=== PATIENT | female | born 1970 | race Caucasian/White ===

== ENCOUNTER 2025-04-12 09:51 | Outpatient (AMB) | payer OTHER, SELFPAY ==
--- OUTSIDE RECORDS SUMMARY | 2012-07-20 01:00 | XMS_ITS | Encounter Summary ---
Author Organization [facility] Address [address] [place] [phone] Phone Care Team Providers Care Collections Analyst Name Role Phone Unavailable Primary Care Provider Unavailabl e Encounter Details Date Type Department Care Team (Late st Contact Info) Description 07/20/2012 Hospital Encounter [facility],Outside Imaging [address] [place] [address] Unknown, Unknown, Social History Tobacco Use Types Packs/Day Years Used Date Smoking Tobacco: Never Smokeless Tobacco: Never Alcohol Use Standard Drinks/Week Comments Yes 3 (1 standard drink = 0.6 oz pur e alcohol) Education Answer Date Recorded Are you interested in more education? Not on margy e 10/10/2022 Are you concerned about learning? Not on file 10/10/2022 No 10/10/2022 No 10/10/2022 Digital Access Answer Date Recorded No 11/10/2022 No 11/10/2022 Reliable internet access at home? Not on file 11/10/2022 Device with a working camera? Not on file Comments Unknown Sex and Gender Information Value Date Recorded Sex Assigned at Not on file Legal Sex Female 8:12 PM EST Gender Identity Not on file Sexual Orientation Not on file documented as of this encounter Plan of Treatment Upcoming Encounters Date Type Department Care Team (Late st Contact Info) Description 04/09/2026 3:20 PM EDT Office Visit [facility] Endocrinology [address] [phone] Tracy Stallworth MD [address] [address] [email or web address] documented as of this encounter Procedures Procedure Name Priority Date/Time Associated Diagnosis Comments US THYROID GLAND OUTSIDE (NO INTERPRETATION) Routine 07/20/2012 12:00 AM EST documented in this encounter Results * US Thyroid Gland Outside (No Interpretation) (07/20/2012 12:00 AM EST) Narrative SYSTEMGENERATED, DOCUMENTATION - 04/05/2025 9:37 AM EDT This study is for PACS storage only and not for interpretation. us Unknown Unknown MD GARCIA OUTSIDE IMAGING W/OUT INT ERPRETATION Final Result documented in this encounter Visit Diagnoses Not on filedocumented in this encounter Additional Source Comments The information contained in this document represents components of the legal health record. It is not the complete legal health record.[facility]
--- OUTSIDE RECORDS SUMMARY | 2013-07-08 01:00 | XMS_ITS | Encounter Summary ---
Author Organization [facility] Address [address] [place] [phone] Phone Care Team Providers Care Airplane Refueler Name Role Phone Roshni Cheek MD Primary Care Provider [phone] Encounter Details Date Type Department Care Team (Late st Contact Info) Description 07/08/2013 Hospital Encounter [facility],Outside Imaging [address] [place] [address] Unknown, Unknown, Social History Tobacco Use Types [...] Description 04/09/2026 3:20 PM EDT Office Visit [facility] Endocrinology [address] [phone] Tracy Stallworth MD [address] [address] documented as of this encounter Procedures Procedure Name Priority Date/Time Associated Diagnosis Comments US THYROID GLAND OUTSIDE (NO INTERPRETATION) Routine 07/08/2013 12:00 AM EST documented in this encounter Results * US Thyroid Gland Outside (No Interpretation) (07/08/2013 12:00 AM EST) Narrative SYSTEMGENERATED, DOCUMENTATION - 04/05/2025 9:37 AM EDT This study is for PACS storage only and not for interpretation. us Unknown Unknown MD [facility] OUTSIDE IMAGING W/OUT INT ERPRETATION Final Result documented in this encounter Visit Diagnoses Not on filedocumented in this encounter Care Teams Airplane Refueler Relationship Specialty Start Date End Date Roshni Cheek MD [address] [place] [phone] PCP - General 07/08/13 10/23/16 documented as of this encounter Additional Source Comments The information contained in this document represents components of the legal health record. It is not the complete legal health record.[facility]
--- NOTE | 2025-04-12 09:54 | MHC.PC.OV ---
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 Allergies No Known Allergies Allergy (Verified 04/12/25 10:08) Medication List - Last Reviewed 04/12/25 by Loy Collazo MA albuterol sulfate 90 mcg/actuation 2 puffs inhalation QID PRN budesonide 0.25 mg inhalation BID budesonide-formoterol 80-4.5 mcg/actuation (Symbicort) 2 puffs inhalation estradiol 1 patch transdermal 2XW levalbuterol HCl 0.63 mg inhalation Q8H PRN lisinopril 5 mg PO DAILY metronidazole 0.75% appl topical BID PRN montelukast 10 mg PO DAILY progesterone micronized 200 mg PO DAILY tretinoin 0.025% appl topical BEDTIME Tobacco use date assessed: 04/12/25 Dental Screening Dental Screen Date: 04/12/25 Did you have a dental visit in the last 12 months?: Yes Did you have a dental problem in the last 6 months where you did not have access to dental care?: No Was dental information given to patient?: Patient has dentist HPI HPI Comments History of Present Illness Details 54 y/o F with thyroid nodule, Asthma, vasomotor rhinitis, melanoma , hx of L foot fracture, HTN, perimenopause S/p bilat modified hip replacement 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 PCP [facility] rec'd Low back pain: - The patient has a longstanding history of low back pain since a lifting incident at age 17. - She has a history of disc issues at L4-L5 and L5-S1, with flare-ups causing radicular pain down the leg with forward bending. - A flare-up in January was successfully treated with a week of steroids and muscle relaxants. - She developed a new type of pain after a Lisfranc fracture of her left foot in September, which required being non-weightbearing for 6 weeks in an iWalk device, followed by 4 weeks in a boot, leading to an uneven gait. - The current pain is located laterally, radiates down the IT band, and is exacerbated by extension, which is different from her usual disc-related pain. - She suspects gluteal tendinopathy, and a recent ultrasound at the [facility] [place] confirmed inflammation of the gluteal tendon. - A diagnostic injection of dextrose, lidocaine, and steroid into the SI joint area last week did not provide any relief. - An MRI of the spine and SI-joint area was ordered by a provider at [facility] but was denied by her insurance. - Self-management includes turmeric, fish oil, lidocaine patches, ibuprofen, occasional Tylenol, stretching, and a TENS unit. Asthma: - The patient manages her asthma with Symbicort 80/4.5, which she increases to two puffs twice daily in the fall and winter, and weans during the summer. - She also takes Singulair. - For exacerbations, especially when ill, she uses budesonide nebulizer treatments and her albuterol inhaler to avoid oral steroids. - She has had significant asthma exacerbations over the last two brownlee, one triggered by an RSV infection and the other by influenza. - Her asthma is generally well-controlled outside of acute illnesses. Menopausal and perimenopausal disorder: - The patient is managed for menopausal symptoms with an estradiol patch and Prometrium, which have helped with hot flashes, mood, and sleep. - Her periods have mostly ceased, with only occasional faint spotting in the past six months. - She reports gaining 15-20 pounds in the last 1.5 years, which she attributes to perimenopause and is frustrated by. - She has made dietary changes, such as cutting back on alcohol, without seeing results. Past Medical History: - Hypertension managed with lisinopril. - History of acetabular dysplasia, which led to bilateral hip resurfacing 15 and 16 years ago. - History of melanoma in 1996, status post wide excision, with biannual dermatology follow-ups. - History of benign thyroid nodules, with yearly endocrinology follow-up; a biopsy several years ago was benign. 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 An echocardiogram was previously recommended but not completed. Past Medical History - Hypertension, treated with lisinopril. - Asthma, treated with Symbicort, Singulair, and albuterol as needed. - Menopause, treated with progesterone and an estradiol patch. - Chronic low back pain since age 17 with disc issues at L4-L5, L5-S1. - History of acetabular dysplasia with bilateral hip resurfacing 15 and 16 years ago. - Left Lisfranc fracture in September. - History of melanoma in 1996, status post wide excision, in remission. - History of benign thyroid nodules, followed by endocrinology. - Familial history of bradycardia. - History of an elbow tendinitis treated with a PRP injection. Review of Systems - CONSTITUTIONAL: Reports weight gain of 15-20 pounds over the last 1.5 years. Denies feeling faint or dizzy. - RESPIRATORY: Currently denies any respiratory issues. Reports her lungs are currently good. - MUSCULOSKELETAL: Reports low back and hip pain that radiates laterally down the IT band, which is worse with extension. - GENITOURINARY: Reports intermittent dysuria for a day that resolves and recurs every few months. Denies current symptoms. Reports perimenopausal changes with faint spotting a few times over the last five to six months instead of regular periods. - ENDOCRINE: Reports improvement in hot flashes, mood, and sleep with hormone therapy. Physical Exam General: Well developed, well nourished, in no acute distress. Appears stated age. Head: Normocephalic, atraumatic. Eyes: Pupils are equal, round and reactive to light and accommodation. Conjunctivae are clear. Lungs: Clear to auscultation bilaterally. No rales, rhonchi or wheeze noted. Good air flow in all sal. Heart: Regular rhythm, bradycardic, No murmurs, click, rubs or gallops are noted. Musculoskeletal: Joints are nontender, without swelling, redness, or effusions. Pulses: Peripheral pulses are equal and palpable bilaterally. Extremities: No clubbing, cyanosis nor edema is noted. Psych: Mood and affect appropriate. Results - Labs from November 2024: Glucose 88, BUN 14, creatinine 0.72, eGFR >90, TSH 1.1, CRP negative, CBC, TSH WNL - Urinalysis from November: No glucose or ketones, some pyuria noted. Denies sx. - Recent Ultrasound: Revealed gluteal tendon inflammation. - Recent SI Joint Injection: A diagnostic injection with dextrose, lidocaine, and steroid provided no relief. Medical Decision Making The patient is a 54-year-old female here to establish care. Her main concern is a new pattern of low back and hip pain that began after a Lisfranc fracture and a subsequent period of altered gait. The pain characteristics (lateral radiation, worse with extension) are distinct from her chronic discogenic pain (worse with flexion). The leading differential is gluteal tendinopathy, which is supported by a recent ultrasound showing inflammation. A recent diagnostic injection targeting the SI joint was ineffective, making sacroiliac pathology less likely. An MRI of the lumbar spine/SI joint, previously ordered by another provider, has been denied by insurance but remains a goal for definitive diagnosis. To facilitate her care and help with diagnostics, a referral will be placed to Dr. Joel Baptiste for further evaluation and potential diagnostic/therapeutic injection, as requested. Her asthma is currently stable, and refills for Symbicort and albuterol are indicated to ensure she is prepared for the winter months. We discussed weight management in the context of perimenopause, and she understands the strict criteria for GLP-1 agonist therapy. She will continue with her current specialists for melanoma, thyroid, and menopausal management. The patient will establish ongoing primary care with Dr. Timmons within this practice. Plan 1. Low Back Pain / Gluteal Tendinopathy - The patient presents with a new pattern of low back and hip pain, distinct from her chronic discogenic symptoms, likely secondary to altered biomechanics from a recent foot fracture. The leading diagnosis is gluteal tendinopathy. - Plan is to support the ongoing diagnostic process. An MRI requested by a previous provider is pending insurance approval. - A referral has been placed to Dr. Joel Baptiste for further evaluation and consideration of a diagnostic injection. - Patient will continue her current conservative management with NSAIDs, stretching, and a TENS unit. 2. Asthma - Patient's asthma is well-controlled. She will continue her current regimen of Symbicort, Singulair, and albuterol PRN. - A 90-day supply of Symbicort and an extra albuterol inhaler have been prescribed to [facility] in [place] to ensure she is prepared for the winter season. 3. Health Maintenance - The patient is establishing primary care with this practice. It is recommended she schedule a [id number]-[id number] appointment with Dr. Iain rojo, followed by a full physical exam after November. - Advised patient to follow up on receiving her RSV and Pneumovax immunizations. She is up to date on her flu and shingles vaccines. - Patient will continue her established follow-up care with dermatology, endocrinology, and [facility]. - Instructed the patient on how to register for and use the [facility] patient portal for communication with the office. Patient Instructions - Please schedule a 'meet and greet' appointment with Dr. Iain rojo to establish care. You can then schedule your full annual physical exam for after November. - A referral has been sent to Dr. Joel Baptiste for your hip and back pain. His office will likely contact you, or you can reach out to them to schedule an appointment. - We will continue to wait for insurance approval for the back MRI that was ordered by your other doctor. - I have sent refills for your Symbicort and albuterol inhalers to the [facility] in [place]. Continue to take your asthma medications as directed. - Make sure to get your RSV and Pneumovax shots. You will need to check on the status of your Tetanus shot. - Please sign up for our [facility] patient portal. You will receive an email link. This is the best way to communicate with our office for any questions or to request appointments. Consent Patient was informed and verbally consented to the use of an ambient scribe for clinic note documentation during this visit. Total time spent caring for the patient today was 45 minutes. This includes time spent before the visit reviewing the chart, time spent during the visit, and time spent after the visit on documentation, reviewing laboratory results, diagnostic imaging, medications, performing a medically necessary evaluation, counseling on diagnoses, care coordination, ordering appropriate tests, ordering appropriate medications, review of tests performed by other providers, reporting test results with the patient, communication with other healthcare providers. 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 1. Little interest or pleasure in doing things: not at all 2. Feeling down, depressed, or hopeless: not at all 3. Trouble falling or staying asleep, or sleeping too much: not at all 4. Feeling tired or having little energy: several days 5. Poor appetite or overeating: not at all 6. Feeling bad about yourself - or that you are a failure or have let yourself or your family down: not at all 7. Trouble concentrating on things, such as reading the newspaper or watching television: not at all 8. Moving or speaking so slowly that other people could have noticed. Or the opposite - being so fidgety or restless that you have been moving around a lot more than usual: not at all 9. Thoughts that you would be better off or of hurting yourself in some way: not at all Total score: 1 Depression Screening Interpretation: Negative Depression Screening Done: Yes 49072 - PHQ-9 Billing: Yes Source: Developed by Drs. Thad Washington, Radha Escalante, Jose Lorenzana and colleagues, with an educational kenji from [employer]. Thrive Questionnaire Date Thrive assessed: 04/12/25 I am a: Patient What is your living situation today?: I have a steady place to live Within the past 12 months, did the food you bought not last and you didn't have the money to get more?: Never true Within the past 12 months, did you worry whether your food would run out before you got money to buy more?: Never true Do you have trouble paying for medicines?: No Do you have trouble getting transportation to medical appointments?: No Do you have trouble paying your heating and electricity bill?: No Do you have trouble taking care of your child, family member or friend?: No Do you have trouble with day-to-day activities such as bathing, preparing meals, shopping, managing finances, etc.?: No Are you currently unemployed and looking for a job?: No Are you interested in more education?: No Please select the resources that you would like help with: None Currently or been in a relationship where the following occur: No concerns reported THRIVE Score: 0 AUDIT C Alcohol Use Questionnaire (AUDIT-C) 1. How often do you have a drink containing alcohol?: 2-3 times a week 2. How many drinks containing alcohol do you have on a typical day when you are drinking?: 1 or 2 3. How often do you have six or more drinks on one occasion?: Never Total Score: 3 Score Reviewed/Action Taken: Yes JULIANNE-7 AMB Questionnaire JULIANNE-7 Date JULIANNE - 7 assessed: 04/12/25 Feeling nervous, anxious, or on edge: 1 = Several days Not being able to stop or control worryin = Not at all Worrying too much about different things: 0 = Not at all Trouble relaxin = Not at all Being so restless that it is hard to sit still: 0 = Not at all Becoming easily annoyed or irritable: 0 = Not at all Feeling afraid as if something awful might happen: 0 = Not at all Total JULIANNE-7 score (0-4 normal; 5-9 mild; 10-14 moderate; 15-21 severe): 1 Source: Developed by Drs. Thad Washington, Radha Escalante, Jose Lorenzana and colleagues, with an educational kenji from [employer]. JULIANNE-7 Assessment Billing JULIANNE-7 Assessment Tool: JULIANNE-7 Assessment 21544 ACT Questionnaire In the past 4 weeks, how much of the time did your asthma keep you from getting as much done at work, school or at home?: None of the time During the past 4 weeks, how often have you had shortness of breath?: Not at all During the past 4 weeks, how often did your asthma symptoms wake you up at night or earlier than usual in the morning?: Not at all During the past 4 weeks, how often have you had to use your rescue inhaler or nebulizer medication?: Not at all How would you rate your asthma control during the past 4 weeks?: Completely controlled ACT Interpretation: Negative Score: 25 Physical exam (Primary Care) Vital Signs: Last Vital Signs Temp 97.2 F 04/12/25 10:01 Pulse 56 04/12/25 10:01 Resp 12 04/12/25 10:01 BP 98/68 04/12/25 10:01 Pulse Ox 98 04/12/25 10:01 Oxygen Delivery Method Room Air 04/12/25 10:01 BMI result Body Mass Index 28.1 Tobacco/Smoking Status: Tobacco use Status Tobacco use date assessed 04/12/25 04/12/25 10:04 Patient Tobacco Use Status Never used Tobacco 04/12/25 10:04 e-Cigarette/Vaping Use Never Used 04/12/25 10:04 PHQ-9: PHQ-9 Score PHQ-9: Total score 1 04/12/25 10:04 Depression Screening Interpretation: Negative Thrive Assessment: Date of Thrive Assessment Date Thrive assessed 04/12/25 04/12/25 10:04 Currently or been in a relationship where the following occur: No concerns reported Coding Level of Care Code New Pt Level 4 (77997) Complex EM visit Add On G2211 Diagnoses Encounter to establish care Z76.89 Sacrococcygeal disorders, not elsewhere classified M53.3 Perimenopause N95.1 Mild intermittent asthma without complication J45.20 Asthma severity: mild Asthma persistence: intermittent Asthma complication type: uncomplicated Thyroid nodule E04.1 History of melanoma Z85.820 Asymptomatic bradycardia R00.1 Additional Codes JULIANNE-7 Assessment Billing - JULIANNE-7 Assessment Tool: UJLIANNE-7 Assessment 88351 ([id number]) PHQ-9 - 75696 - PHQ-9 Billing: Yes ([id number]) Asthma Control Questionnaire - ACT Interpretation: Negative ([id number]) Assessment & Plan Assessment & Plan (1) Encounter to establish care: Code(s): Z76.89 - Persons encountering health services in other specified circumstances (2) Sacrococcygeal disorders, not elsewhere classified: Code(s): M53.3 - Sacrococcygeal disorders, not elsewhere classified Category: Medical (3) Perimenopause: Code(s): N95.1 - Menopausal and female climacteric states Category: Medical (4) Asthma: Code(s): J45.909 - Unspecified asthma, uncomplicated Category: Medical Qualifiers: Asthma severity: mild Asthma persistence: intermittent Asthma complication type: uncomplicated Qualified Code(s): J45.20 - Mild intermittent asthma, uncomplicated (5) Thyroid nodule: Code(s): E04.1 - Nontoxic single thyroid nodule Category: Medical (6) History of melanoma: Code(s): Z85.820 - Personal history of malignant melanoma of skin Category: Medical (7) Asymptomatic bradycardia: Code(s): R00.1 - Bradycardia, unspecified Category: Medical Plan . Orders: Referrals Physiatry Referral M53.3 - Sacrococcygeal disorders, not elsewhere classified Medications: New budesonide-formoterol 80-4.5 mcg/actuation (Symbicort) 2 puffs inhalation BID 30.6 grams 2RF albuterol sulfate 90 mcg/actuation 2 puffs inhalation QID PRN 6.7 grams 2RF shortness of breath or wheezing Patient Instructions: Walk-In Care (Urgent Care): We Make it Easy Walk-in for urgent medical issues such as: ? Seasonal Allergies ? Insect Bites ? Cough ? Diarrhea ? Acute Asthma Attacks ? Back, Knee or Joint Pain ? Ear Infection ? Fever without a Rash ? Headaches ? Nausea ? [place], Rash or Skin Irritation ? Sore Throat ? Sports Physicals ? Vomiting Most insurances are accepted. Patients do not need to be part of the [facility] to seek care at the walk-in clinic. Locations [address] [place] [address] Open Thursday through Thursday 8am-5pm *Hours may vary due to staffing availability. To confirm Walk-In Care hours please call. [facility] [address], [place] [address] ? [phone] [facility] in [place] provides services to ages 18 and over. Open Thursday-Thursday: 7 a.m. to 5 p.m. and Thursday: 9 a.m. to 3 p.m.* *Hours may vary due to staffing availability. To confirm Walk-In Care hours in [place], please call [phone]. [address] [place] [address] ? [phone] [facility] in [place] provides services to ages 12 and over. Open Thursday-Thursday: 8 a.m. to 5 p.m. Hours may vary due to staffing availability. To confirm Walk-In Care hours in [place], please call [phone]. LABORATORY SERVICES: [facility] Lab ? Primary Location [address] [place] [address] Thursday through Thursday 6:00 AM ? 5:00 PM Thursday 7:00 AM ? 11:00 AM* [phone] The [facility] Lab is centrally located near the front entrance of the [facility] for easy outpatient access. Convenient parking is provided for outpatients. *Hours may vary due to staffing availability. To confirm Laboratory hours for any location, please call [phone]. Offsite Location For your convenience, we offer offsite laboratory draw stations at the following locations: [address] [place] [address] ? [facility] [address], [address] Thursday through Thursday 7:30 AM ? 1:00 PM* [phone] *Hours may vary due to staffing availability. To confirm Laboratory hours for any location, please call [phone]. [place] ? [address] Thursday through Thursday 6:00 AM ? 3:30 PM* Thursday 6:30 AM ? 3 PM* [phone] *Hours may vary due to staffing availability. To confirm Laboratory hours for any location, please call [phone] [place] [address] Thursday through Thursday 7:30 AM ? 4:00 PM* [phone] *Hours may vary due to staffing availability. To confirm Laboratory hours for any location, please call [phone] [place] [address] Thursday through 9:00 AM ? 4:00 PM* *Hours may vary due to staffing availability. To confirm Laboratory hours for any location, please call [phone]. Appointments are not necessary. Walk-ins are welcome. Like all the departments throughout the [facility], our Lab undergoes frequent reviews to ensure the quality and accuracy of test results, and our staff takes special pride in its status as a nationally accredited facility. Patient Portal: [facility] ONE PATIENT. ONE RECORD. BETTER CARE. [facility] has a fully integrated, cutting-edge mobile electronic health information system that has revolutionized the way we care for our patients and manage our organization. This system improves communication and coordination enabling us to provide safe, higher-quality care, and an overall positive experience for staff and patients. Our first priority, as always, is to deliver the highest quality care possible. The system is running in the background supporting that priority. This portal is for all [facility] services and practices. If you are experiencing any technical difficulties with enrolling or logging into the Patient Portal please complete the [facility] Patient Portal Technical Support Form. [facility] now offers a new secure on-line interactive tool for patients to review their health information ? ?Patient Portal. This interactive web portal will enable patients and their families to take an active role in their care by providing easy, secure access to their health information via the internet. The Patient Portal provides patients with instant access to their health information, including laboratory results, medications, allergies, demographic information, visit history, and more. In addition to managing their own care, parents and health care proxies with authorized consent will appreciate the ability to access the records of those individuals for whom they provide care. Please note: if you wish to gain access (Proxy) to another patient?s portal, you will be required to come to the Medical Records Department in person at [facility]. Both the patient giving proxy access and the proxy will need to provide photo identification and complete the appropriate authorization. The Patient Portal also allows track their appointments online. The [facility] Patient Portal also saves patients time by allowing them to submit updates to their demographic and contact information prior to their visits. Portal email notifications will also alert patients to any new activity on their portal, such as test results and new appointments. In order to initially enroll in the [facility] Patient Portal, you will need to enter some required information including the following: your [facility] Medical Record number your personal home email address name date of Please note: In order to enroll in the [facility] Patient Portal, we need to have your email address on file in your electronic medical record. ?The email address needs to be specific for one person (yourself) in order for your Portal enrollment to be successful. ?You can update your email address in person with our Registration staff when you are registering for a hospital visit. ?Otherwise, you will need to come to the Health Information Management (Medical Records) Department at [facility]. ?We are open from Thursday ? Thursday from 7:30 a.m. ? 4:30 p.m. ?You will be required to present a photo id. Once you have successfully enrolled in the Patient Portal, you will receive a one-time user id and password for the Portal, sent to your email address. ?This will allow you to log into the Patient Portal within 99 hrs and reset your own logon id and password, and define personal security questions. ?Once your permanent login and password have been set, you can log into the [facility] Patient Portal at any time via the blue button above or from the Portal Logon button on any page of the [facility] website. [facility] and [facility] encourage all of our patients to enroll in Patient Portal as it presents a valuable opportunity for patients and their families to actively participate in their care and stay healthy Welcome to [facility]. ?We look forward to working with you.
[2025-04-12 10:01] VITALS: BP 98/68; PULSE 56; RESP 12; TEMP 36.2; O2SAT 98; BMI 28.1
[2025-04-12 10:33] VITALS: BP 102/64
--- OUTSIDE RECORDS SUMMARY | 2025-04-12 11:52 | XMS_ITS | Data Portability ---
Author Organization [facility], Main Office Address [address] [place] [address] Care Team Providers Care Assistant Project Manager Name Role Phone SOCORRO GUILLEN Dosier Operator ROSALINDA MELARA General Surgeon [facility] Sleep Medicine [phone] PALLAVI NICHOLE Community Artist KANE FARIAS Message Broker Developer [phone] ALIREZA GALVEZ Primary Care Provider Unavailabl e Assessment Encounter Date Assessment Date Assessment LastModified by Organization Details LastModified Time 11/23/2023 11/23/2023 Discussed with patient the signs/symptom s warranted for a return to office visit and/or an ER visit. Patient understood and agreed with the plan. Not available 11/23/2023 11:45:34 04/14/2024 04/14/2024 Discussed with patient the signs/symptom s warranted for a return to office visit and/or an ER visit. Patient understood and agreed with the plan. Not available 04/14/2024 14:13:44 Plan of Treatment Reminders Order Date Submit Date Provider Last Modified By Organization Details Last Modified Time Details Appointments FOLLOW UP 30MIN 2024 09:30A M MELLISA JOE IN, MINUTE CLERK FOR BASIC TRAFFIC-BC Not available Not available Not available Lab HbA1c (hemoglob in A1c), blood 2024 025 [facility], [address] [facility], [facility], [place], [address], 11/09/2024 16:15:58 vitamin D, 25-hydrox y, total, serum 2024 025 [facility], [address], [address], [place], [address], 11/09/2024 16:15:57 CMP, serum or plasma 2024 025 [facility], [address], [address], [place], [address], 11/09/2024 16:15:58 CBC w/ auto diff 2024 025 [facility] (Centralized Electronic Ordering - All Locations), Patient Can Go To The Location Of Their Choice, 11/09/2024 16:15:58 TSH + free T4, serum 2024 025 [facility] (Centralized Electronic Ordering - All Locations), Patient Can Go To The Location Of Their Choice, 11/09/2024 16:15:58 lipid panel, serum 2024 025 [facility], [address], [address], [place], [address], 11/09/2024 16:15:58 CBC w/ auto diff 2023 024 [facility] (Centralized [facility] Ordering - All Locations), Patient Can Go To The Location Of Their Choice, 04/16/2024 06:09:27 CMP, serum or plasma 2023 024 [facility] (Centralized [facility] Ordering - All Locations), Patient Can Go To The Location Of Their Choice, 04/16/2024 06:09:28 Referral mental health counselor referral - Severe debilitat ing depressio n, relations hip problems 2024 025 [email or web address] Not available 03/17/2025 16:20:18 gynecolog ist referral - due for screening 2024 [email or web address] [facility] Exercise Manager, [address], [address], [place], [address], 11/09/2024 16:27:15 Procedures upper endoscopy procedure (EGD) (PROC) 2023 024 [email or web address] [facility] ([facility]), [address], [place], [address], 04/26/2024 14:39:51 Surgeries None recorded. Imaging MAMMO, screening , bilateral - Perform Diagnosti c Mammogram and Breast Ultrasoun d if needed / Perform Ultrasoun d Guided Aspiratio n and/or Breast Biopsy if warranted 2024 025 [email or web address] [facility], [address], [address], [place], [address], 11/09/2024 16:27:15 Medication Orders bupropion HCl XL 300 mg 24 hr tablet, extended release 2024 025 [id number], [address] [place] [address], [id number], 03/17/2025 15:57:02 ondansetr on 4 mg disintegr ating tablet 2023 025 [id number], [address] [place] [address], [id number], 11/09/2024 16:04:34 Patient TargetsNo targets recorded. Patient Instructions Encounter Date Encounter Id Patient Instructions Last Modified By Organization Details Last Modified Time 11/23/2023 [id number] [facility] follow up visit, all current and discharge medications (OTC, herbal therapies, supplements) reviewed and reconciled with patient and or caregiver, including potential side effects, drug interactions, instructions, and the consequences of not taking medication. Reviewed potential barriers to medication adherence, such as side effects from medication or cost of medication. [email or web address] Not available 11/23/2023 14:59:36 04/14/2024 [id number] nausea and vomiting: care instructions Not available 04/14/2024 14:21:13 11/09/2024 [id number] sleep apnea: car e instructions Not available 11/09/2024 16:15:48 Cervical Cancer Screening Not available 11/09/2024 16:15:48 03/17/2025 [id number] Mental Health Information Not available 03/17/2025 15:56:49 learning about stress Not available 03/17/2025 15:56:49 Reason for Referral Dosier Operator Referral for Sc reening for malignant neoplasm of cervix due for screening Referring Physician: Alireza Galvez, [facility] Medicine, Encounter Date: 11/09/2024 Mental Health Counselor Refe rral for Severe depression Severe debilitating depression, relationship problems Referring Physician: Mellisa Park, [facility] Medicine, Encounter Date: 03/17/2025 Results Created Date Observation Date Name Description Value Unit Range Abnormal Flag Note LastModifiedBy Organization Detail LastModifiedTime 08/20/1908/18/2024 TISSU E EXAM final diagnosis A. Small Intest ine, Duoden um, biopsy : - Small intes tinal mucos a with prese rved villi and no speci fic patho logic alexandre es. - Negat daniel for incre ased intra epith elial lymph ocyte s. B. Gastr ic, Antru m, biops y: - Gastr ic antra l mucos a with activ e chron ic gastr itis. - Helic obact er pylor i organ isms are morph ologi lorenzo ident ified . Elect tami salas d by Haylee Rollins MD on 025 at 11:20 AM Not Available [address], [address], 08/19/2024 11:22:29 08/20/19 25 08/18/2024 TISSU E EXAM clinical information Gastro -esoph ageal reflux diseas e, hemate mesis, nausea with vomiti ng R/O Eleanor c sprue R/O Helic obact er pylor i Not Available [address], [address], 08/19/2024 11:22:29 08/20/19 25 08/18/2024 TISSU E EXAM gross description A. Small Intest ine, Duoden um, biopsy : Label ed duod enum biops y . Recei simón in forma jason are four irreg ular harper mucos al tissu e fragm ents, each measu ring appro ximat berta 0.1 cm in great est dimen ritesh, which are wrapp ed in paper and submi tted in toto in one casse tte, four piece s, multi ple level s on one slide . B. Gastr ic, Antru m, biops y: Label ed antr um biops y . Recei simón in forma jason are three irreg ular harper mucos al tissu e fragm ents, rangi ng from less than 0.1 cm to 0.3 cm in great est dimen ritesh, which are wrapp ed in paper and submi tted in toto in one casse tte, three piece s, multi ple level s on one slide . ASAD Not Available [address], [address], 08/19/2024 11:22:29 08/20/19 25 08/18/2024 TISSU E EXAM disclaimer Unles s other peterson speci fied, all tissu e is 10% NB forma jason fixed and paraf fin embed ded. Not Available [address], [address], 08/19/2024 11:22:29 08/20/19 25 08/19/2024 TISSU E EXAM .note See Note Origi nal Order ing Provi terra: KANE E SLITZ [facility] - [address] [facility], [place], [place] [address] Not Available [address], [address], 08/19/2024 11:22:29 11/05/19 24 11/05/2023 CMP14 (REFL EX HGB A1C) glucose 99 mg/dL 70-99 Not Available [facility] ([facility]) [address], [place], [address], 11/06/2023 08:09:07 11/05/19 24 11/05/2023 CMP14 (REFL EX HGB A1C) BUN 18 mg/dL 6-24 Not Available [facility] ([facility]) [address] [facility], [place], [address], 11/06/2023 08:09:07 11/05/19 24 11/05/2023 CMP14 (REFL EX HGB A1C) creatinine 0.83 mg/dL 0.57-1 .00 Not Available [facility] ([facility]) [address] [facility], [place], [address], 11/06/2023 08:09:07 11/05/19 24 11/05/2023 CMP14 (REFL EX HGB A1C) eGFR 84 mL/mi n/1.7 3 >59 Not Available [facility] ([facility]) [address] [place], [address], 11/06/2023 08:09:07 11/05/19 24 11/05/2023 CMP14 (REFL EX HGB A1C) BUN/creatini ne ratio 22 9-23 Not Available [facility] ([facility]) [address] [place], [address], 11/06/2023 08:09:07 11/05/19 24 11/05/2023 CMP14 (REFL EX HGB A1C) sodium 141 mmol/ L 134-14 4 Not Available [facility] ([facility]) [address] [place], [address], 11/06/2023 08:09:07 11/05/19 24 11/05/2023 CMP14 (REFL EX HGB A1C) potassium 4.2 mmol/ L 3.5-5. 2 Not Available [facility] ([facility]) [address] [place], [address], 11/06/2023 08:09:07 05/23/20 24 11/05/2023 CMP14 (REFL EX HGB A1C) chloride 102 mmol/ L 96-106 Not Available [facility] ([facility]) [address] [place], [address], 11/06/2023 08:09:07 11/05/19 24 11/05/2023 CMP14 (REFL EX HGB A1C) carbon dioxide, total 24 mmol/ L 20-29 Not Available [facility] ([facility]) [address] [place], [address], 11/06/2023 08:09:07 11/05/1911/05/2023 CMP14 (REFL EX HGB A1C) calcium 9.3 mg/dL 8.7-10 .2 Not Available [facility] ([facility]) [address] [place], [address], 11/06/2023 08:09:07 11/05/19 24 11/05/2023 CMP14 (REFL EX HGB A1C) protein, total 7.5 g/dL 6.0-8. 5 Not Available [facility] ([facility]) [address] [place], [address], 11/06/2023 08:09:07 11/05/1911/05/2023 CMP14 (REFL EX HGB A1C) albumin 4.3 g/dL 3.8-4. 9 Not Available [facility] ([facility]) [address] [place], [address], 11/06/2023 08:09:07 11/05/1911/05/2023 CMP14 (REFL EX HGB A1C) globulin, total 3.2 g/dL 1.5-4. 5 Not Available [facility] ([facility]) [address] [place], [address], 11/06/2023 08:09:07 11/05/19 24 11/05/2023 CMP14 (REFL EX HGB A1C) A/G ratio 1.3 1.2-2. 2 Not Available [facility] ([facility]) [address] [place], [address], 11/06/2023 08:09:07 11/05/19 24 11/05/2023 CMP14 (REFL EX HGB A1C) bilirubin, total 0.3 mg/dL 0.0-1. 2 Not Available [facility] ([facility]) [address] [place], [address], 11/06/2023 08:09:07 11/05/19 24 11/05/2023 CMP14 (REFL EX HGB A1C) alkaline phosphatase 101 IU/L 44-121 Not Available [facility] ([facility]) [address] [place], [address], 11/06/2023 08:09:07 11/05/19 24 11/05/2023 CMP14 (REFL EX HGB A1C) AST (SGOT) 14 IU/L 0-40 Not Available [facility] ([facility]) [address] [place], [address], 11/06/2023 08:09:07 11/05/19 24 11/05/2023 CMP14 (REFL EX HGB A1C) ALT (SGPT) 13 IU/L 0-32 Not Available [facility] ([facility]) [address] [place], [address], 11/06/2023 08:09:07 11/05/19 24 11/06/2023 TSH+F REE T4 TSH 1.140 uIU/m L 0.450- 4.500 Not Available [facility] ([facility]) [address] [place], [address], 11/06/2023 08:09:08 11/05/19 24 11/06/2023 TSH+F REE T4 T4,free(dire ct) 1.34 NG/dL 0.82-1 .77 Not Available [facility] ([facility]) [address] [facility], [place], [address], 11/06/2023 08:09:08 11/05/1911/06/2023 CBC WITH DIFFE RENTI AL/PL ATELE T WBC 7.2 x10e3 /uL 3.4-10 .8 Not Available [facility] ([facility]) [address] [facility], [place], [address], 11/06/2023 08:09:09 11/05/19 24 11/06/2023 CBC WITH DIFFE RENTI AL/PL ATELE T RBC 4.57 x10e6 /uL 3.77-5 .28 Not Available [facility] ([facility]) [address] [facility], [place], [address], 11/06/2023 08:09:09 11/05/19 24 11/06/2023 CBC WITH DIFFE RENTI AL/PL ATELE T hemoglobin 12.6 g/dL 11.1-1 5.9 Not Available [facility] ([facility]) [address], [place], [address], 11/06/2023 08:09:09 11/05/19 24 11/06/2023 CBC WITH DIFFE RENTI AL/PL ATELE T hematocrit 40.0 % 34.0-4 6.6 Not Available [facility] ([facility]) [address] [place], [address], 11/06/2023 08:09:09 11/05/19 24 11/06/2023 CBC WITH DIFFE RENTI AL/PL ATELE T MCV 88 fL 79-97 Not Available [facility] ([facility]) [address], [place], [address], 11/06/2023 08:09:09 11/05/19 24 11/06/2023 CBC WITH DIFFE RENTI AL/PL ATELE T MCH 27.6 pg 26.6-3 3.0 Not Available [facility] ([facility]) [address], [place], [address], 11/06/2023 08:09:09 11/05/19 24 11/06/2023 CBC WITH DIFFE RENTI AL/PL ATELE T MCHC 31.5 g/dL 31.5-3 5.7 Not Available [facility] ([facility]) [address] [facility], [place], [address], 11/06/2023 08:09:09 11/05/19 24 11/06/2023 CBC WITH DIFFE RENTI AL/PL ATELE T RDW 13.1 % 11.7-1 5.4 Not Available [facility] ([facility]) [address] [facility] [facility], [place], [address], 11/06/2023 08:09:09 11/05/19 24 11/06/2023 CBC WITH DIFFE RENTI AL/PL ATELE T platelets 320 x10e3 /uL 150-45 0 Not Available [facility] ([facility]) [address], [place], [address], 11/06/2023 08:09:09 11/05/19 24 11/06/2023 CBC WITH DIFFE RENTI AL/PL ATELE T neutrophils 51 % not estab. Not Available [facility] ([facility]) [address] [place], [address], 11/06/2023 08:09:09 11/05/1911/06/2023 CBC WITH DIFFE RENTI AL/PL ATELE T lymphs 35 % not estab. Not Available [facility] ([facility]) [address] [place], [address], 11/06/2023 08:09:09 11/05/19 24 11/06/2023 CBC WITH DIFFE RENTI AL/PL ATELE T monocytes 7 % not estab. Not Available [facility] ([facility]) [address] [place], [address], 11/06/2023 08:09:09 11/05/19 24 11/06/2023 CBC WITH DIFFE RENTI AL/PL ATELE T eos 6 % not estab. Not Available [facility] ([facility]) [address], [place], [address], 11/06/2023 08:09:09 11/05/19 24 11/06/2023 CBC WITH DIFFE RENTI AL/PL ATELE T basos 1 % not estab. Not Available [facility] ([facility]) [address] [facility] [facility], [place], [address], 11/06/2023 08:09:09 11/05/19 24 11/06/2023 CBC WITH DIFFE RENTI AL/PL ATELE T immature cells DINKEY PRESS OPERATOR Not Available [facility] ([facility]) [address] [place], [address], 11/06/2023 08:09:09 11/05/19 24 11/06/2023 CBC WITH DIFFE RENTI AL/PL ATELE T neutrophils (absolute) 3.7 x10e3 /uL 1.4-7. 0 Not Available [facility] ([facility]) [address] [place], [address], 11/06/2023 08:09:09 11/05/19 24 11/06/2023 CBC WITH DIFFE RENTI AL/PL ATELE T lymphs (absolute) 2.6 x10e3 /uL 0.7-3. 1 Not Available [facility] ([facility]) [address] [place], [address], 11/06/2023 08:09:09 11/05/19 24 11/06/2023 CBC WITH DIFFE RENTI AL/PL ATELE T monocytes(ab solute) 0.5 x10e3 /uL 0.1-0. 9 Not Available [facility] ([facility]) [address] [place], [address], 11/06/2023 08:09:09 11/05/19 24 11/06/2023 CBC WITH DIFFE RENTI AL/PL ATELE T eos (absolute) 0.4 x10e3 /uL 0.0-0. 4 Not Available [facility] ([facility]) [address] [facility] [facility], [place], [address], 11/06/2023 08:09:09 11/05/19 24 11/06/2023 CBC WITH DIFFE RENTI AL/PL ATELE T baso (absolute) 0.1 x10e3 /uL 0.0-0. 2 Not Available [facility] ([facility]) [address] [facility], [place], [address], 11/06/2023 08:09:09 11/05/19 24 11/06/2023 CBC WITH DIFFE RENTI AL/PL ATELE T immature granulocytes 0 % not estab. Not Available [facility] ([facility]) [address] [facility], [place], [address], 11/06/2023 08:09:09 11/05/19 24 11/06/2023 CBC WITH DIFFE RENTI AL/PL ATELE T immature grans (abs) 0.0 x10e3 /uL 0.0-0. 1 Not Available [facility] ([facility]) [address] [facility] [facility], [place], [address], 11/06/2023 08:09:09 11/05/19 24 11/06/2023 CBC WITH DIFFE RENTI AL/PL ATELE T NRBC DINKEY PRESS OPERATOR Not Available [facility] ([facility]) [address] [facility] [facility], [place], [address], 11/06/2023 08:09:09 11/05/19 24 11/06/2023 CBC WITH DIFFE RENTI AL/PL ATELE T hematology comments: DINKEY PRESS OPERATOR Not Available [facility] ([facility]) [address] [facility] [facility], [place], [address], 11/06/2023 08:09:09 11/05/19 24 11/05/2023 LIPID PANEL cholesterol, total 174 mg/dL 100-19 9 Not Available [facility] ([facility]) [address] [facility] [place], [address], 11/06/2023 08:09:09 11/05/19 24 11/05/2023 LIPID PANEL triglyceride s 73 mg/dL 0-149 Not Available [facility] ([facility]) [address] [facility] [place], [address], 11/06/2023 08:09:09 11/05/19 24 11/05/2023 LIPID PANEL HDL cholesterol 51 mg/dL >39 Not Available [facility]) [address] [facility] [place], [address], 11/06/2023 08:09:09 11/05/19 24 11/05/2023 LIPID PANEL VLDL cholesterol sophie 14 mg/dL 5-40 Not Available [facility] ([facility]) [address] [facility] [place], [address], 11/06/2023 08:09:09 11/05/19 24 11/05/2023 LIPID PANEL LDL chol calc ([facility]) 109 mg/dL 0-99 above high normal Not Available [facility] ([facility]) [address] [facility] [place], [address], 11/06/2023 08:09:09 11/05/1911/05/2023 LIPID PANEL comment: DINKEY PRESS OPERATOR Not Available [facility] ([facility]) [address] [facility] [place], [address], 11/06/2023 08:09:09 11/05/1911/06/2023 HEMOG LOBIN A1C hemoglobin A1C 6.0 % 4.8-5. 6 above high normal Predi abete s: 5.7 - 6.4 Diabe chris: >6.4 Glyce laurence contr ol for adult s with diabe chris: <7.0 Not Available [facility] ([facility]) [address] [facility], [place], [address], 11/06/2023 08:09:10 11/05/19 24 11/06/2023 VITAM IN D, 25-HY DROXY vitamin D, 25-hydroxy 20.4 NG/mL 30.0-1 00.0 below low normal Vitam in D defic iency has been defin ed by the Insti tute of Medic ine and an Endoc rine Socie ty pract ice guide line as a level of serum 25-OH vitam in D less than 20 ng/mL (1,2) . The Endoc rine Socie ty went on to furth er defin e vitam in D insuf ficie ncy as a level betwe en 21 and 29 ng/mL (2). 1. IOM (Inst itute of Medic ine). 2010. Pablo ry refer howarde juan es for calci um and D. Antonietta siddiqui [place]: The [facility] . 2. Carolina bernal MF, Mervin yuan [place], Babs off-F errar i MONTES, et al. Evalu ation , treat ment, and preve ntion of vitam in D defic iency : an Endoc rine Socie ty clini sophie pract ice guide line. JCEM. 2010; 96(7) :1911 -30. Not Available [facility] ([facility]) [address] [facility], [place], [address], 11/06/2023 08:09:11 11/05/19 24 11/06/2023 MAGNE SIUM magnesium 2.2 mg/dL 1.6-2. 3 Not Available [facility] ([facility]) [address] [facility], [place], [address], 11/06/2023 08:09:11 04/14/20 24 04/15/2024 VITAM IN D, 25-HY DROXY vitamin D, 25-hydroxy 43.0 NG/mL 30.0-1 00.0 Vitam in D defic iency has been defin ed by the Insti tute of Medic ine and an Endoc rine Socie ty pract ice guide line as a level of serum 25-OH vitam in D less than 20 ng/mL (1,2) . The Endoc rine Socie ty went on to furth er defin e vitam in D insuf ficie ncy as a level betwe en 21 and 29 ng/mL (2). 1. IOM (Inst itute of Medic ine). 2010. Dieta ry refer ence juan es for calci um and D. Antonietta siddiqui [place]: The [facility] . 2. Carolina bernal MF, Mervin yuan [place], Babs off-F errar i MONTES, et al. Evalu ation , treat ment, and preve ntion of vitam in D defic iency : an Endoc rine Socie ty clini sophie pract ice guide line. JCEM. 2010; 96(7) :1911 -30. Not Available [facility] ([facility]) [address] [place], [address], 04/15/2024 08:08:56 04/14/20 24 04/15/2024 CBC WITH DIFFE RENTI AL/PL ATELE T WBC 8.2 x10e3 /uL 3.4-10 .8 normal Not Available [facility] ([facility]) [address] [place], [address], 04/16/2024 06:09:27 04/14/20 24 04/15/2024 CBC WITH DIFFE RENTI AL/PL ATELE T RBC 4.11 x10e6 /uL 3.77-5 .28 normal Not Available [facility] ([facility]) [address] [place], [address], 04/16/2024 06:09:27 04/14/20 24 04/15/2024 CBC WITH DIFFE RENTI AL/PL ATELE T hemoglobin 11.7 g/dL 11.1-1 5.9 normal Not Available [facility] ([facility]) [address] [place], [address], 04/16/2024 06:09:27 04/14/2004/15/2024 CBC WITH DIFFE RENTI AL/PL ATELE T hematocrit 36.8 % 34.0-4 6.6 normal Not Available [facility] ([facility]) [address] [facility], [place], [address], 04/16/2024 06:09:27 04/14/2004/15/2024 CBC WITH DIFFE RENTI AL/PL ATELE T MCV 90 fL 79-97 normal Not Available [facility] ([facility]) [address] [place], [address], 04/16/2024 06:09:27 04/14/20 24 04/15/2024 CBC WITH DIFFE RENTI AL/PL ATELE T MCH 28.5 pg 26.6-3 3.0 normal Not Available [facility] ([facility]) [address] [facility], [place], [address], 04/16/2024 06:09:27 04/14/2004/15/2024 CBC WITH DIFFE RENTI AL/PL ATELE T MCHC 31.8 g/dL 31.5-3 5.7 normal Not Available [facility] ([facility]) [address] [place], [address], 04/16/2024 06:09:27 04/14/2004/15/2024 CBC WITH DIFFE RENTI AL/PL ATELE T RDW 12.7 % 11.7-1 5.4 Not Available [facility] ([facility]) [address] [place], [address], 04/16/2024 06:09:27 04/14/2004/15/2024 CBC WITH DIFFE RENTI AL/PL ATELE T platelets 328 x10e3 /uL 150-45 0 normal Not Available [facility] ([facility]) [address] [place], [address], 04/16/2024 06:09:27 04/14/20 24 04/15/2024 CBC WITH DIFFE RENTI AL/PL ATELE T neutrophils 48 % not estab. normal Not Available [facility] ([facility]) [address] [facility], [place], [address], 04/16/2024 06:09:27 04/14/20 24 04/15/2024 CBC WITH DIFFE RENTI AL/PL ATELE T lymphs 32 % not estab. normal Not Available [facility] ([facility]) [address] [facility], [place], [address], 04/16/2024 06:09:27 04/14/20 24 04/15/2024 CBC WITH DIFFE RENTI AL/PL ATELE T monocytes 9 % not estab. normal Not Available [facility] ([facility]) [address] [facility], [place], [address], 04/16/2024 06:09:27 04/14/20 24 04/15/2024 CBC WITH DIFFE RENTI AL/PL ATELE T eos 10 % not estab. normal Not Available [facility] ([facility]) [address] [facility], [place], [address], 04/16/2024 06:09:27 04/14/20 24 04/15/2024 CBC WITH DIFFE RENTI AL/PL ATELE T basos 1 % not estab. normal Not Available [facility] ([facility]) [address] [facility], [place], [address], 04/16/2024 06:09:27 04/14/20 24 04/15/2024 CBC WITH DIFFE RENTI AL/PL ATELE T immature cells DINKEY PRESS OPERATOR Not Available [facility] ([facility]) [address] [facility], [place], [address], 04/16/2024 06:09:27 04/14/20 24 04/15/2024 CBC WITH DIFFE RENTI AL/PL ATELE T neutrophils (absolute) 3.9 x10e3 /uL 1.4-7. 0 normal Not Available [facility] ([facility]) [address] [place], [address], 04/16/2024 06:09:27 04/14/20 24 04/15/2024 CBC WITH DIFFE RENTI AL/PL ATELE T lymphs (absolute) 2.6 x10e3 /uL 0.7-3. 1 normal Not Available [facility] ([facility]) [address] [facility], [place], [address], 04/16/2024 06:09:27 04/14/2004/15/2024 CBC WITH DIFFE RENTI AL/PL ATELE T monocytes(ab solute) 0.8 x10e3 /uL 0.1-0. 9 normal Not Available [facility] ([facility]) [address] [place], [address], 04/16/2024 06:09:27 04/14/20 24 04/15/2024 CBC WITH DIFFE RENTI AL/PL ATELE T eos (absolute) 0.8 x10e3 /uL 0.0-0. 4 above high normal Not Available [facility] ([facility]) [address] [place], [address], 04/16/2024 06:09:27 04/14/20 24 04/15/2024 CBC WITH DIFFE RENTI AL/PL ATELE T baso (absolute) 0.1 x10e3 /uL 0.0-0. 2 normal Not Available [facility] ([facility]) [address] [place], [address], 04/16/2024 06:09:27 04/14/20 24 04/15/2024 CBC WITH DIFFE RENTI AL/PL ATELE T immature granulocytes 0 % not estab. Not Available [facility] [facility] [address] [place], [address], 04/16/2024 06:09:27 04/14/20 24 04/15/2024 CBC WITH DIFFE RENTI AL/PL ATELE T immature grans (abs) 0.0 x10e3 /uL 0.0-0. 1 Not Available [facility] ([facility]) [address] [facility], [place], [address], 04/16/2024 06:09:27 04/14/20 24 04/15/2024 CBC WITH DIFFE RENTI AL/PL ATELE T NRBC DINKEY PRESS OPERATOR Not Available [facility] ([facility]) [address] [facility], [place], [address], 04/16/2024 06:09:27 04/14/20 24 04/15/2024 CBC WITH DIFFE RENTI AL/PL ATELE T hematology comments: DINKEY PRESS OPERATOR Not Available [facility] ([facility]) [address] [facility], [place], [address], 04/16/2024 06:09:27 04/14/20 24 04/15/2024 COMP. METAB OLIC PANEL (14) glucose 110 mg/dL 70-99 above high normal Not Available [facility] ([facility]) [address] [facility], [place], [address], 04/16/2024 06:09:28 04/14/20 24 04/15/2024 COMP. METAB OLIC PANEL (14) BUN 17 mg/dL 6-24 normal Not Available [facility] ([facility]) [address] [facility], [place], [address], 04/16/2024 06:09:28 04/14/20 24 04/15/2024 COMP. METAB OLIC PANEL (14) creatinine 0.75 mg/dL 0.57-1 .00 normal Not Available [facility] ([facility]) [address] [facility], [place], [address], 04/16/2024 06:09:28 04/14/20 24 04/15/2024 COMP. METAB OLIC PANEL (14) eGFR 95 mL/mi n/1.7 3 >59 normal Not Available [facility] ([facility]) [address] [facility] [place], [address], 04/16/2024 06:09:28 04/14/20 24 04/15/2024 COMP. METAB OLIC PANEL (14) BUN/creatini ne ratio 23 9-23 normal Not Available [facility] ([facility]) [address] [facility] [place], [address], 04/16/2024 06:09:28 04/14/20 24 04/15/2024 COMP. METAB OLIC PANEL (14) sodium 145 mmol/ L 134-14 4 above high normal Not Available [facility] ([facility]) [address] [facility] [place], [address], 04/16/2024 06:09:28 04/14/20 24 04/15/2024 COMP. METAB OLIC PANEL (14) potassium 4.3 mmol/ L 3.5-5. 2 normal Not Available [facility] ([facility]) [address] [facility] [place], [address], 04/16/2024 06:09:28 04/14/20 24 04/15/2024 COMP. METAB OLIC PANEL (14) chloride 105 mmol/ L 96-106 normal Not Available [facility] ([facility]) [address] [facility] [place], [address], 04/16/2024 06:09:28 04/14/20 24 04/15/2024 COMP. METAB OLIC PANEL (14) carbon dioxide, total 18 mmol/ L 20-29 below low normal Not Available [facility] ([facility]) [address] [facility] [place], [address], 04/16/2024 06:09:28 04/14/20 24 04/15/2024 COMP. METAB OLIC PANEL (14) calcium 9.5 mg/dL 8.7-10 .2 normal Not Available [facility] ([facility]) [address] [place], [address], 04/16/2024 06:09:28 04/14/20 24 04/15/2024 COMP. METAB OLIC PANEL (14) protein, total 6.8 g/dL 6.0-8. 5 normal Not Available [facility] ([facility]) [address] [place], [address], 04/16/2024 06:09:28 04/14/20 24 04/15/2024 COMP. METAB OLIC PANEL (14) albumin 4.0 g/dL 3.8-4. 9 normal Not Available [facility] ([facility]) [address] [place], [address], 04/16/2024 06:09:28 04/14/20 24 04/15/2024 COMP. METAB OLIC PANEL (14) globulin, total 2.8 g/dL 1.5-4. 5 Not Available [facility] ([facility]) [address] [place], [address], 04/16/2024 06:09:28 04/14/20 24 04/15/2024 COMP. METAB OLIC PANEL (14) bilirubin, total <0.2 mg/dL 0.0-1. 2 Not Available [facility] ([facility]) [address] [place], [address], 04/16/2024 06:09:28 04/14/20 24 04/15/2024 COMP. METAB OLIC PANEL (14) alkaline phosphatase 92 IU/L 44-121 normal Not Available [facility] ([facility]) [address] [place], [address], 04/16/2024 06:09:28 04/14/20 24 04/15/2024 COMP. METAB OLIC PANEL (14) AST (SGOT) 15 IU/L 0-40 normal Not Available [facility] ([facility]) [address] [facility], [place], [address], 04/16/2024 06:09:28 04/14/20 24 04/15/2024 COMP. METAB OLIC PANEL (14) ALT (SGPT) 18 IU/L 0-32 normal Not Available [facility] ([facility]) [address] [facility], [place], [address], 04/16/2024 06:09:28 07/27/19 25 07/27/2024 AMYLA SE amylase 44 unit/ L 25-115 Not Available [address], [address], 07/27/2024 11:40:43 07/27/19 25 07/27/2024 AMYLA SE note See Report [facility], [address], [place], [place] [address] Not Available [address], [address], 07/27/2024 11:40:43 07/27/19 25 07/27/2024 COMPR EHENS DANIEL METAB OLIC PANEL sodium 136 mmol/ L 133-14 5 Not Available [address], [address], 07/27/2024 11:40:45 07/27/19 25 07/27/2024 COMPR EHENS DANIEL METAB OLIC PANEL potassium 4.2 mmol/ L 3.5-5. 5 Not Available [address], [address], 07/27/2024 11:40:45 07/27/19 25 07/27/2024 COMPR EHENS DANIEL METAB OLIC PANEL chloride 103 mmol/ L 96-110 Not Available [address], [address], 07/27/2024 11:40:45 07/27/19 25 07/27/2024 COMPR EHENS DANIEL METAB OLIC PANEL CO2 30 mmol/ L 21-32 Not Available [address], [address], 07/27/2024 11:40:45 07/27/19 25 07/27/2024 COMPR EHENS DANIEL METAB OLIC PANEL anion gap 3 3-11 Not Available [address], [address], 07/27/2024 11:40:45 07/27/19 25 07/27/2024 COMPR EHENS DANIEL METAB OLIC PANEL glucose 82 mg/dL 70-100 Not Available [address], [address], 07/27/2024 11:40:45 07/27/19 25 07/27/2024 COMPR EHENS DANIEL METAB OLIC PANEL BUN 23 mg/dL 5-25 Not Available [address], [address], 07/27/2024 11:40:45 07/27/19 25 07/27/2024 COMPR EHENS DANIEL METAB OLIC PANEL creatinine 0.67 mg/dL 0.50-1 .10 Not Available [address], [address], 07/27/2024 11:40:45 07/27/19 25 07/27/2024 COMPR EHENS DANIEL METAB OLIC PANEL eGFR 104 mL/mi n/1.7 3m2 >=60 Calcu latio n based on the C hroni c Kidne y Disea se Epide miolo gy Colla borat ion (CKD- EPI) equat ion refit w ithou t adjus tment for race. Not Available [address], [address], 07/27/2024 11:40:45 07/27/19 25 07/27/2024 COMPR EHENS DANIEL METAB OLIC PANEL BUN/creatini ne ratio 34.3 Not Available [address], [address], 07/27/2024 11:40:45 07/27/19 25 07/27/2024 COMPR EHENS DANIEL METAB OLIC PANEL calcium 9.0 mg/dL 8.5-10 .5 Not Available [address], [address], 07/27/2024 11:40:45 07/27/19 25 07/27/2024 COMPR EHENS DANIEL METAB OLIC PANEL AST (SGOT) 13 unit/ L 10-42 Not Available [address], [address], 07/27/2024 11:40:45 07/27/19 25 07/27/2024 COMPR EHENS DANIEL METAB OLIC PANEL ALT (SGPT) 25 unit/ L 10-60 Not Available [address], [address], 07/27/2024 11:40:45 07/27/19 25 07/27/2024 COMPR EHENS DANIEL METAB OLIC PANEL alkaline phosphatase 91 unit/ L 42-121 Not Available [address], [address], 07/27/2024 11:40:45 07/27/19 25 07/27/2024 COMPR EHENS DANIEL METAB OLIC PANEL total protein 7.3 g/dL 6.0-8. 0 Not Available [address], [address], 07/27/2024 11:40:45 07/27/19 25 07/27/2024 COMPR EHENS DANIEL METAB OLIC PANEL albumin 3.5 g/dL 3.2-5. 0 Not Available [address], [address], 07/27/2024 11:40:45 07/27/19 25 07/27/2024 COMPR EHENS DANIEL METAB OLIC PANEL total bilirubin 0.3 mg/dL 0.0-1. 4 Not Available [address], [address], 07/27/2024 11:40:45 07/27/19 25 07/27/2024 COMPR EHENS DANIEL METAB OLIC PANEL note See Report [facility], [address], [place], [place] [address] Not Available [address], [address], 07/27/2024 11:40:45 07/27/19 25 07/27/2024 LIPAS E lipase 23 unit/ L 13-75 Not Available [address], [address], 07/27/2024 11:40:47 07/27/19 25 07/27/2024 LIPAS E note See Report [facility], [address], [place], [place] [facility] [place] [address] Not Available [address], [address], 07/27/2024 11:40:47 07/27/19 25 07/27/2024 CBC WITH AUTO DIFFE RENTI AL WBC 8.2 K/mcL 4.8-10 .8 Not Available [address], [address], 07/27/2024 11:46:46 07/27/19 25 07/27/2024 CBC WITH AUTO DIFFE RENTI AL RBC 4.30 M/mcL 3.80-4 .80 Not Available [address], [address], 07/27/2024 11:46:46 07/27/19 25 07/27/2024 CBC WITH AUTO DIFFE RENTI AL hemoglobin 12.0 g/dL 11.5-1 6.0 Not Available [address], [address], 07/27/2024 11:46:46 07/27/19 25 07/27/2024 CBC WITH AUTO DIFFE RENTI AL hematocrit 37.0 % 35.0-4 7.0 Not Available [address], [address], 07/27/2024 11:46:46 07/27/19 25 07/27/2024 CBC WITH AUTO DIFFE RENTI AL MCV 87.1 fL 79.0-9 8.0 Not Available [address], [address], 07/27/2024 11:46:46 07/27/19 25 07/27/2024 CBC WITH AUTO DIFFE RENTI AL MCH 28.2 pcg 27.0-3 2.0 Not Available [address], [address], 07/27/2024 11:46:46 07/27/19 25 07/27/2024 CBC WITH AUTO DIFFE RENTI AL MCHC 32.4 g/dL 32.0-3 7.0 Not Available [address], [address], 07/27/2024 11:46:46 07/27/19 25 07/27/2024 CBC WITH AUTO DIFFE RENTI AL RDW 12.9 % 11.0-1 5.0 Not Available [address], [address], 07/27/2024 11:46:46 07/27/19 25 07/27/2024 CBC WITH AUTO DIFFE RENTI AL platelets 330 K/mcL 130-40 0 Not Available [address], [address], 07/27/2024 11:46:46 07/27/19 25 07/27/2024 CBC WITH AUTO DIFFE RENTI AL MPV 10.6 fL 7.0-11 .0 Not Available [address], [address], 07/27/2024 11:46:46 07/27/19 25 07/27/2024 CBC WITH AUTO DIFFE RENTI AL NRBC 0.0 % <1.0 Not Available [address], [address], 07/27/2024 11:46:46 07/27/19 25 07/27/2024 CBC WITH AUTO DIFFE RENTI AL NRBC absolute 0.00 K/mcL <0.10 Not Available [address], [address], 07/27/2024 11:46:46 07/27/19 25 07/27/2024 CBC WITH AUTO DIFFE RENTI AL neutrophils relative 55.7 % Not Available [address], [address], 07/27/2024 11:46:46 07/27/19 25 07/27/2024 CBC WITH AUTO DIFFE RENTI AL lymphocytes relative 30.5 % Not Available [address], [address], 07/27/2024 11:46:46 07/27/19 25 07/27/2024 CBC WITH AUTO DIFFE RENTI AL monocytes relative 8.4 % Not Available [address], [address], 07/27/2024 11:46:46 07/27/19 25 07/27/2024 CBC WITH AUTO DIFFE RENTI AL eosinophils relative 4.3 % Not Available [address], [address], 07/27/2024 11:46:46 07/27/19 25 07/27/2024 CBC WITH AUTO DIFFE RENTI AL basophils relative 0.9 % Not Available [address], [address], 07/27/2024 11:46:46 07/27/19 25 07/27/2024 CBC WITH AUTO DIFFE RENTI AL immature granulocytes relative 0.2 % Not Available [address], [address], 07/27/2024 11:46:46 07/27/19 25 07/27/2024 CBC WITH AUTO DIFFE RENTI AL neutrophils absolute 4.56 K/mcL 1.50-7 .00 Not Available [address], [address], 07/27/2024 11:46:46 07/27/19 25 07/27/2024 CBC WITH AUTO DIFFE RENTI AL lymphocytes absolute 2.50 K/mcL 1.00-5 .00 Not Available [address], [address], 07/27/2024 11:46:46 07/27/19 25 07/27/2024 CBC WITH AUTO DIFFE RENTI AL monocytes absolute 0.69 K/mcL 0.20-1 .00 Not Available [address], [address], 07/27/2024 11:46:46 07/27/19 25 07/27/2024 CBC WITH AUTO DIFFE RENTI AL eosinophils absolute 0.35 K/mcL 0.00-0 .50 Not Available [address], [address], 07/27/2024 11:46:46 07/27/19 25 07/27/2024 CBC WITH AUTO DIFFE RENTI AL basophils absolute 0.07 K/mcL 0.00-0 .20 Not Available [address], [address], 07/27/2024 11:46:46 07/27/19 25 07/27/2024 CBC WITH AUTO DIFFE RENTI AL immature granulocytes absolute 0.02 K/mcL 0.00-0 .03 Not Available [address], [address], 07/27/2024 11:46:46 07/27/19 25 07/27/2024 CBC WITH AUTO DIFFE RENTI AL note See Report [facility], [address], [place], [place] [address] Not Available [address], [address], 07/27/2024 11:46:46 Result Notes None recorded. Problems Name Problem SNOMED Code Status Onset Date Resolution Date Notes Provider Name and Address Organization Details Recorded Time Neck pain 40544127 Completed 05/27/2016 JUAN A Pool, [facility] 6 09:52:59 Allergic asthma 772817560 Active Not Available [facility] 1 23:57:02 Moderate persiste nt asthma 074746201 Active Not Available [facility] 1 23:57:02 Acute sinusiti s 93153919 Completed 04/23/2016 JUAN A Pool, [facility] 6 14:57:07 Inflamma tion of sacroili ac joint 64378698 Active Not Available [facility] 1 23:57:02 Anxiety 47295972 Active Not Available [facility] 1 23:57:02 Fatigue 42208937 Completed 04/23/2016 Vargas Humphrey, [facility] [address], [place], [address] , [facility] 2 16:00:57 Sinusiti s 35053975 Completed 04/23/2016 JUAN A Pool, [facility] 6 14:57:15 Acute asthma 626560278 Completed 200801/19/2014 RECORDED 10/07/19 09 4:06PM BY RICKY BOWIE MD, ANNOTATI ON/ADDEN DUM Vargas Humphrey, [facility] [address], [place], [address] , [facility] 6 14:45:04 Administ ration of bacteria l and viral vaccine Completed 200801/19/2014 RECORDED 10/07/19 09 3:08PM BY JUAN A GREENFIELD, OFFICE VISIT Vargas Humphrey, [facility] [address], [place], [address] , [facility] 6 14:45:04 Acute asthma 178901654 Completed 200801/20/2014 RECORDED 10/07/19 09 4:06PM BY RICKY BOWIE MD, ANNOTATI ON/ADDEN DUM Vargas Humphrey, [facility] [address], [place], [address] , [facility] 6 14:45:04 Administ ration of bacteria l and viral vaccine Completed 200801/20/2014 RECORDED 10/07/19 09 3:08PM BY JUAN A GREENFIELD, OFFICE VISIT Vargas Humphrey, [facility] [address], [place], [address] , [facility] 6 14:45:04 Acute asthma 560559780 Completed 200812/27/2013 RECORDED 10/07/19 09 4:06PM BY RICKY BOWIE MD, ANNOTATI ON/ADDEN DUM Vargas Humphrey, [facility] [address], [place], [address] , [facility] 6 14:45:04 Administ ration of bacteria l and viral vaccine Completed 200812/27/2013 RECORDED 10/07/19 09 3:08PM BY JUAN A GREENFIELD, OFFICE VISIT Vargas Humphrey, [facility] [address], [place], [address] , [facility] 6 14:45:04 Disorder of respirat ory system 51715256 Completed 201101/19/2014 RECORDED 03/30/20 12 7:06AM BY AMANDA COOPER I, KAYLEYATI ON/ADDEN NAHEED Humphrey, [facility] [address], [place], [address] , [facility] 6 14:45:04 Dizzines s and giddines s 551057456 Completed 201101/19/2014 RECORDED 03/30/20 12 7:06AM BY AMANDA COOPER I, KAYLEYATI ON/ADDEN NAHEED Humphrey, [facility] [address], [place], [address] , [facility] 6 14:45:04 Infectiv e otitis externa 07154892 Completed 201101/19/2014 RECORDED 03/30/20 12 7:06AM BY AMANDA COOPER I, KERRY ON/JEFFRY Humphrey, [facility] [address] [address], [place], [address] , [facility] 6 14:45:04 Skin sensatio n disturba nce 14806896 Completed 201101/19/2014 STORY: HYPERVEN TILATION SYNDROME .; IMPRESSI ON: DISUCSSE D ANXIETY TRIGGERS AND TREATMEN T.; RECORDED 03/30/20 12 7:06AM BY KERRY EDMOND ON/JEFFRY Humphrey, [facility] [address], [place], [address] , [facility] 6 14:45:04 Disorder of respirat ory system 13928232 Completed 201101/20/2014 RECORDED 03/30/20 12 7:06AM BY KAYLEY EDMONDATI ON/ADDEN NAHEED Humphrey, [facility] [address], [place], [address] , [facility] 6 14:45:04 Dizzines s and giddines s 683542574 Completed 201101/20/2014 RECORDED 03/30/20 12 7:06AM BY KERRY EDMOND ON/ADDANA PAULA Humphrey, [facility] [address], [place], [address] , [facility] 6 14:45:04 Infectiv e otitis externa 23539100 Completed 201101/20/2014 RECORDED 03/30/20 12 7:06AM BY KERRY EDMOND ON/ADDANA PAULA Humphrey, [facility] [address], [place], [address] , [facility] 6 14:45:04 Skin sensatio n disturba fle 61118333 Completed 201101/20/2014 STORY: HYPERVEN TILATION SYNDROME .; IMPRESSI ON: DISUCSSE D ANXIETY TRIGGERS AND TREATMEN T.; RECORDED 03/30/20 12 7:06AM BY KERRY EDMOND ON/JEFFRY Humphrey, [facility] [address], [place], [address] , [facility] 6 14:45:04 Disorder of respirat ory system 39266962 Completed 201112/27/2013 RECORDED 03/30/20 12 7:06AM BY KERRY EDMOND ON/JEFFRY Humphrey, [facility] [address], [place], [address] , [facility] 6 14:45:04 Dizzines s and giddines s 691821892 Completed 201112/27/2013 RECORDED 03/30/20 12 7:06AM BY AMANDA COOPER I, ANNOTATI ON/ADDEN NAHEED Humphrey, [facility] [address], [place], [address] , [facility] 6 14:45:04 Infectiv e otitis externa 90595584 Completed 201112/27/2013 RECORDED 03/30/20 12 7:06AM BY AMANDA COOPER I, ANNOTATI ON/ADDEN DUM Vargas Humphrey, [facility] [address], [place], [address] , [facility] 6 14:45:04 Skin sensatio n disturba fle 00482299 Completed 201112/27/2013 STORY: HYPERVEN TILATION SYNDROME .; IMPRESSI ON: DISUCSSE D ANXIETY TRIGGERS AND TREATMEN T.; RECORDED 03/30/20 12 7:06AM BY AMANDA COOPER I, ANNOTATI ON/ADDEN DUM Vargas Humphrey, [facility] [address] [facility] [address], [place], [address] , [facility] 6 14:45:04 Screenin g for malignan t neoplasm of breast Completed 201201/19/2014 RECORDED 10/28/19 13 2:04PM BY JANNETTE SIBLEY MA, ANNOTATI ON/ADDEN DUM Vargas Humphrey, [facility] [address] [facility] [address], [place], [address] , [facility] 6 14:45:04 Screenin g for malignan t neoplasm of breast Completed 201201/20/2014 RECORDED 10/28/19 13 2:04PM BY JANNETTE SIBLEY MA, ANNOTATI ON/ADDEN DUM Vargas Humphrey, [facility] [address], [place], [address] , [facility] 6 14:45:04 Screenin g for malignan t neoplasm of breast Completed 201212/27/2013 RECORDED 10/28/19 13 2:04PM BY JANNETTE SIBLEY MA, ANNOTATI ON/ADDEN DUM Vargas Humphrey, [facility] [address], [place], [address] , [facility] 6 14:45:04 Screenin g for malignan t neoplasm of cervix Completed 201201/19/2014 RECORDED 12/10/19 13 3:11PM BY JANNETTE SIBLEY MA, ANNOTATI ON/ADDEN NAHEED Humphrey, [facility] [address], [place], [address] , [facility] 6 14:45:04 Screenin g for malignan t neoplasm of cervix Completed 201201/20/2014 RECORDED 12/10/19 13 3:11PM BY JANNETTE SIBLEY MA, ANNOTATI ON/ADDEN DUM Vargas Humphrey, [facility] [address], [place], [address] , [facility] 6 14:45:04 Screenin g for malignan t neoplasm of cervix Completed 201212/27/2013 RECORDED 12/10/19 13 3:11PM BY JANNETTE SIBLEY MA, ANNOTATI ON/ADDEN NAHEED Humphrey, [facility] [address], [place], [address] , [facility] 6 14:45:04 Adult health examinat ion Completed 201301/19/2014 RECORDED 08/24/19 14 1:33PM BY JANNETTE SIBLEY MA, ANNOTATI ON/ADDEN DUM Vargas Humphrey, [facility] [address], [place], [address] , [facility] 6 14:45:04 Influenz a vaccine needed [id number] 06 Completed 201301/19/2014 RECORDED 08/24/19 14 1:33PM BY JANNETTE SIBLEY MA, KERRY ON/ADDEN NAHEED Humphrey, [facility] [address] [facility] [facility] [address], [place], [address] , [facility] 6 14:45:04 Renewal of prescrip tion Completed 201301/19/2014 RECORDED 08/24/19 14 1:33PM BY JANNETTE SIBLEY MA, KERRY SORENSON/ADDEN NAHEED Humphrey, [facility] [address] [facility] [address], [place], [address] , [facility] 6 14:45:04 Adult health examinat ion Completed 201301/20/2014 RECORDED 08/24/19 14 1:33PM BY JANNETTE SIBLEY MA, KERRY ON/ADDEN NAHEED Humphrey, [facility] [address] [facility] [facility] [address], [place], [address] , [facility] 6 14:45:04 Influenz a vaccine needed [id number] 06 Completed 201301/20/2014 RECORDED 08/24/19 14 1:33PM BY JANNETTE SIBLEY MA, KERRY ON/ADDEN NAHEED Humphrey, [facility] [address] [facility] [address], [place], [address] , [facility] 6 14:45:04 Renewal of prescrip tion Completed 201301/20/2014 RECORDED 08/24/19 14 1:33PM BY JANNETTE SIBLEY MA, KERRY ON/ADDEN NAHEED Humphrey, [facility] [address], [place], [address] , [facility] 6 14:45:04 Adult health examinat ion Completed 201312/27/2013 RECORDED 08/24/19 14 1:33PM BY JANNETTE SIBLEY MA, ANNOTATI ON/ADDEN DUM Vargas Humphrey, [facility] [address] [facility] [address], [place], [address] , [facility] 6 14:45:04 Tobacco dependen ce syndrome 68061018 Completed 201312/27/2013 RECORDED 08/24/19 14 1:33PM BY JANNETTE SIBLEY MA, KAYLEYATI ON/ADDEN DUM Jannette chen MA [facility] 7 15:16:02 Influenz a vaccine needed [id number] 06 Completed 201312/27/2013 RECORDED 08/24/19 14 1:33PM BY JANNETTE SIBLEY MA, KERRY ON/ADDEN DUM Vargas Humphrey, [facility] [address] [facility] [address], [place], [address] , [facility] 6 14:45:04 Renewal of prescrip tion Completed 201312/27/2013 RECORDED 08/24/19 14 1:33PM BY JANNETTE SIBLEY MA, KERRY ON/ADDEN DUM Vargas Humphrey, [facility] [address] [facility] [address] [facility] [address], [place], [address] , [facility] 6 14:45:04 Brachial radiculi tis 62003297 Active 2013 Not Available [facility] 1 23:57:02 Allergic rhinitis 67342897 Active 2013 Not Available [facility] 1 23:57:02 Asthma 948300467 Active 2013 Not Available [facility] 1 23:57:02 Tobacco dependen ce syndrome 79268102 Completed 201307/04/2016 Removal Reason: quit Jannette Chetna-Ma christineJUAN A carmona aleks, [facility] 7 15:16:02 Malaise and fatigue 057581587 Completed 201304/23/2016 Jannette Chetna-Ma christineJUAN A carmona aleks, [facility] 6 14:57:11 Gastroes ophageal reflux disease 311766921 Active 2013 Not Available [facility] 1 23:57:02 Hyperlip idemia 34663076 Active 2013 Not Available [facility] 1 23:57:02 Insomnia 553794149 Active 2013 Not Available [facility] 1 23:57:02 Major depressi on single episode, in partial remissio n 27999370 Active 2013 MELLISA Mendez, [facility] [address], [place], [address] , [facility] 5 12:39:10 Obesity 094365778 Completed 201308/08/2019 Ricky Bowie MD [address], [place], [address] , [facility] 0 16:29:48 Follow-u p encounte r Completed 201304/23/2016 Jannette chenJUAN A aleks, [facility] 6 14:57:18 Ex-smoke r 6710279 Active 2016 Not Available [facility] 1 23:57:02 Obstruct daniel sleep apnea syndrome 66828330 Active 2016 AHI = 12 on CPAP Not Available [facility] 1 23:57:02 Fatigue 78794160 Active 2021 Vargas Humphrey [facility] [address], [place], [address] , [facility] 2 16:00:57 Impaired fasting glycemia 455330138 Active 2021 Vargas Humphrey, [address] [address], [place], [address] , [facility] 2 16:00:57 Vitamin D deficien cy 14333371 Active 2021 Vargas Humphrey, [address] [address], [place], [address] , [facility] 2 16:00:57 Dysfunct ion of eustachi an tube 79281673 Active 2021 Vargas Humphrey, [facility] [facility] [address] [place] [address], [place], [address] , [facility] 2 16:00:57 Bunion [id number] Active 2021 Vargas Humphrey, [facility] [address] [place] [address], [place], [address] , [facility] 2 16:00:57 Screenin g for malignan t neoplasm of colon Active 2021 Vargas Humphrey, [facility] [address] [place] [address], [place], [address] , [facility] 2 16:00:57 Anemia 964701214 Active 2021 Vargas Humphrey, [facility] [address] [place] [address], [place], [address] , [facility] 2 16:09:45 Overacti ve urinary bladder 733676394 Active 2022 Vargas Humphrey, [facility] [address] [place] [address], [place], [address] , [facility] 3 09:07:07 Muscle spasm of cervical muscle of neck 41299246267 4 Active 2022 Janitza C. Thabet, [facility] [address], [place], [address] , [facility] 3 09:13:36 Exacerba tion of moderate persiste nt asthma 626379920 Active 2023 Vargas Humphrey, [facility] [address] [facility] [address], [place], [address] , [facility] 4 09:30:28 Prediabe chris 030434935 Active 2023 Vargas Humphrey, [facility] [address] [facility] [address], [place], [address] , [facility] 4 12:16:37 Severe depressi on 457944855 Active 2024 MELLISA Mendez, [facility] [address] [facility] [address], [place], [address] , [facility] 5 15:43:08 Muscular headache 964514877 Active 2024 MELLISA Mendez, [facility] [address] [facility] [address], [place], [address] , [facility] 5 15:55:19 Problem Notes None recorded. Procedures Surgical History Date Name Laterality Status Provider Name and Address Organization Details Recorded Time 03/15/20 21 Colonoscopy completed Daisy Jorgensen MA [facility] 08/13/2021 15:36:28 10/27/19 21 Date of Last Colonoscopy completed Tamara Randall [facility] 10/31/2020 11:20:46 01/03/20 20 Mammogram one breast completed Shae Pollock [facility] 01/04/2020 13:09:34 12/14/19 20 Most Recent Mammogram completed Vargas Humphrey [facility] [address] [facility] [address], [place], [address], [facility] 08/10/2020 13:33:48 03/21/20 19 Date of Last Pap Smear completed Shae Pollock [facility] 03/26/2019 08:24:41 03/15/20 19 release of trigger finger completed Jannette cheng MA [facility] 08/08/2019 15:33:18 01/09/20 18 Mammogram both breasts completed Sanjana Oneal [facility] 01/12/2018 14:02:07 11/26/19 14 Cholecystectomy completed Tamara Randall MA [facility] 04/18/2021 16:00:14 Tonsillectomy completed Daisy Jorgensen MA [facility] 08/13/2021 15:36:28 Tubal Ligation completed Jannette cheng MA [facility] 01/05/2014 14:28:55 Anesth tympanotomy completed Tamara Randall MA [facility] 04/18/2021 16:00:14 Imaging Results None recorded. Procedure Notes None recorded. Medical Equipment None Reported. Allergies No known drug allergies Medications Name Sig Start Date Stop Date Status Note LastModified by Organization Details LastModified Time amoxicill in 500 mg caps active Not Available Not Available Not Available advair hfa 230-21 mcg/act aero active Not Available Not Available Not Available lorazepam 0.5 mg tabs active Not Available Not Available Not Available bupropion hcl xl 150 mg tb24 active Not Available Not Available Not Available hydroquin one 6 % cream 10/23 completed Not Available Not Available Not Available monteluka st sodium 10 mg tabs 1 PO DAILY 05/27 completed Not Available Not Available Not Available hydrocodo ne/acetam inophen 5-325 mgtabs active Not Available Not Available Not Available prednison e 50 mg tabs active Not Available Not Available Not Available proair hfa 108 (90 base) mcg/act aers active Not Available Not Available Not Available cyclobenz aprine 10 mg tablet TAKE 1 TABLET BY MOUTH THREE TIMES DAILY FOR 10 DAYS DIRECTED 11/04 completed Not Available Not Available Not Available amoxicill in 500 mg capsule TAKE 1 CAPSULE BY MOUTH TWICE DAILY FOR 10 DAYS 11/22 completed Not Available Not Available Not Available doxycycli ne hyclate 100 mg capsule TAKE 1 CAPSULE BY MOUTH TWICE DAILY. TAKE WITH 8 OUNCES OF WATER. DO NOT LIE DOWN FOR 30 MINUTES AFTER 11/09 completed Not Available Not Available Not Available albuterol sulfate 2.5 mg/3 mL (0.083 %) solution for nebulizat ion USE 3 ML VIA NEBULIZE R EVERY 4 HOURS NEEDED active Not Available Not Available No t Available Cortispor in 3.5 mg/mL-10, 000 unit/mL-1 % ear drops,macho pension QID 10/13 completed RECORDED 05/29/20 09 11:28AM BY RICKY BOWIE MD, MEDIC[facility] ON AUTO-ADALI CTIVATIO N; Not Available Not Available Not Available oxybutyni n chloride ER 10 mg tablet,ex tended release 24 hr TAKE 1 TABLET BY MOUTH EVERY DAY DIRECTED 11/09 completed Not Available Not Available Not Available biotin 5 mg capsule TAKE 1 CAPSULE BY MOUTH DAILY 08/08 completed Not Available Not Available Not Available Nicoderm CQ 21 mg/24 hr daily transderm al patch Apply 1 patch every day by transder mal route for 14 days. 01/19 completed Not Available Not Available Not Available ondansetr on HCl 4 mg tablet active Not Available Not Available No t Available prednison e 20 mg tablet TAKE 2 TABLETS BY MOUTH EVERY DAY FOR 5 DAYS DIRECTED 11/22 completed Not Available Not Available Not Available sertralin e 100 mg tablet TAKE 1 AND 1/2 TABLETS BY MOUTH EVERY DAY DIRECTED 2024 active Not Available Not Available Not Avai lable acetamino phen 300 mg-codein e 30 mg tablet 05/27 completed Not Available Not Available Not Available sulfameth oxazole 800 mg-trimet hoprim 160 mg tablet TAKE 1 TABLET BY MOUTH TWICE DAILY FOR 3 DAYS 07/22 completed Not Available Not Available Not Available minoxidil 2.5 mg tablet TAKE 1 TABLET BY MOUTH DAILY 03/17 completed Not Available Not Available Not Available Nicoderm CQ 7 mg/24 hr daily transderm al patch Apply 1 patch every day by transder mal route for 30 days. 2013 active Not Available Not Available Not Avai lable amoxicill in 875 mg tablet TAKE 1 TABLET BY MOUTH TWICE DAILY 11/04 completed Not Available Not Available Not Available lorazepam 0.5 mg tablet Take 1 tablet 3 times a day by oral route as needed for 5 days. 08/09 completed prior to dental work Not Available Not Available Not Available Nicoderm CQ 14 mg/24 hr daily transderm al patch Apply 1 patch every day by transder mal route for 14 days. 01/19 completed Not Available Not Available Not Available benzonata te 100 mg capsule TAKE 1 CAPSULE BY MOUTH THREE TIMES DAILY 11/04 completed Not Available Not Available Not Available prednison e 50 mg tablet Take 1 tablet every day by oral route for 5 days. 2014 active Not Available Not Available Not Avai lable polymyxin B sulfate 10,000 unit-trim ethoprim 1 mg/mL eye drops INSTILL 1 DROP INTO AFFECTED EYE(S) BY OPHTHALM IC ROUTE EVERY 6 HOURS 08/13 completed Not Available Not Available Not Available gabapenti n 300 mg capsule Take 1 capsule every day by oral route as needed for 30 days. 08/09 completed Not Available Not Available Not Available omeprazol e 20 mg capsule,d elayed release active Not Available Not Available Not Available diclofena c sodium 75 mg tablet,de layed release TAKE 1 TABLET BY MOUTH EVERY 12 HOURS 10/23 completed Not Available Not Available Not Available monteluka st 10 mg tablet TAKE 1 TABLET BY MOUTH EVERY DAY AT BEDTIME 2024 active Not Available Not Available Not Avai lable Culturell e 10 billion cell capsule Take 1 capsule every day by oral route as directed for 10 days. 2015 active Not Available Not Available Not Avai lable ergocalci ferol (vitamin D2) 1,250 mcg (50,000 unit) capsule TAKE 1 CAPSULE BY MOUTH EVERY WEEK DIRECTED 03/18 completed ON HOLD Not Available Not Available Not Available lorazepam 1 mg tablet QHS/PRN 02/17 completed RECORDED 05/18/20 07 4:09PM BY RICKY BOWIE MD, MEDICATI ON AUTO-ADALI CTIVATIO N; Not Available Not Available Not Available methylpre dnisolone 4 mg tablets in a dose pack 08/08 completed Not Available Not Available Not Available albuterol sulfate HFA 90 mcg/actua tion aerosol inhaler INHALE 2 PUFFS BY MOUTH EVERY 4 HOURS NEEDED active Not Available Not Available No t Available ondansetr on 4 mg disintegr ating tablet Place 2 tablets every 8 hours by translin gual route as needed for 14 days. 11/09 completed Not Available Not Available Not Available fluticaso ne propionat e 50 mcg/actua tion nasal spray,macho pension SHAKE LIQUID AND USE 2 SPRAYS IN EACH NOSTRIL EVERY DAY DIRECTED 08/13 completed Not Available Not Available Not Available sertralin e 50 mg tablet TAKE 1 TABLET BY MOUTH EVERY DAY active Not Available Not Available No t Available naproxen 500 mg tablet TAKE 1 TABLET BY MOUTH TWICE DAILY NEEDED 03/18 completed switched Not Available Not Available Not Available amoxicill in 875 mg-potass ium clavulana te 125 mg tablet TAKE 1 TABLET BY MOUTH TWICE DAILY FOR 10 DAYS 10/23 completed Not Available Not Available Not Available oxycodone 5 mg tablet active Not Available Not Available Not Available albuterol (refill) 90 mcg/actua tion aerosol inhaler Q 4HR/PRN 01/29 completed RECORDED 01/30/20 10 3:02PM BY RICKY BOWIE MD, OFFICE VISIT;TH IS ORDER DISCONTI NUED PER LSAT Freedom-SPA N. Not Available Not Available Not Available bupropion HCl XL 300 mg 24 hr tablet, extended release TAKE 1 TABLET BY MOUTH EVERY DAY DIRECTED active Not Available Not Available No t Available bupropion HCl XL 150 mg 24 hr tablet, extended release TAKE 1 TABLET BY MOUTH EVERY DAY 03/17 completed Not Available Not Available Not Available Boostrix Tdap 2.5 Lf unit-8 mcg-5 Lf/0.5 mL intramusc ular syringe TO BE ADMINIST ERED BY PHARMACI ST FOR IMMUNIZA TION 08/09 completed Not Available Not Available Not Available Asmanex Twisthale r 220 mcg/actua tion(120 doses) breath activated inhlr active Not Available Not Available Not Available Asmanex Twisthale r 220 mcg/actua tion(60 doses) breath activated inhalr TWO TIMES DAILY 09/12 completed RECORDED 09/13/19 14 8:41AM BY MARILU LEYVA, OFFICE VISIT; Not Available Not Available Not Available Asmanex Twisthale r 220 mcg/actua tion(14 doses) breath activated inhalr TWO TIMES DAILY 2013 active RECORDED 09/13/19 14 9:31AM BY RICKY BOWIE MD, OFFICE VISIT; Not Available Not Available Not Available Flonase EACH SIDE, DAILY 2013 active RECORDED 09/13/19 14 9:33AM BY RICKY BOWIE MD, OFFICE VISIT; Not Available Not Available Not Available omeprazol e 30 MINUTES BEFORE BREAKFAS T 2012 active RECORDED 04/08/20 13 3:56PM BY JONAH THOMPSON MA, OFFICE VISIT; Not Available Not Available Not Available naproxen TWO TIMES DAILY 2012 active RECORDED 09/13/19 14 8:39AM BY MARILU LEYVA, OFFICE VISIT; Not Available Not Available Not Available Peak Air Peak Flow Meter QD 09/02 completed RECORDED 12/30/19 08 11:34AM BY STEPHAN CASTELLANOS, MEDICATI ON AUTO-ADALI CTIVATIO N; Not Available Not Available Not Available Albuterol Sulfate HFA Q 4 HRS NEEDED 05/18 completed RECORDED 05/18/20 07 4:09PM BY RICKY BOWIE MD, MEDICATI ON AUTO-ADALI CTIVATIO N;THIS ORDER DISCONTI NUED PER MEDI-SPA N. Not Available Not Available Not Available Advair HFA 230 mcg-21 mcg/actua tion aerosol inhaler INHALE 1 PUFF BY MOUTH TWICE DAILY 11/04 completed Not Available Not Available Not Available cholecalc iferol (vitamin D3) 50 mcg (2,000 unit) capsule TAKE ONE CAPSULE BY MOUTH EVERY DAY DIRECTED 2024 active Not Available Not Available Not Avai lable PreviDent 5000 Booster Plus 1.1 % dental paste USE TO BRUSH TEETH TWICE DAILY 03/17 completed Not Available Not Available Not Available Women's Multivita min 18 mg iron-400 mcg-500 mg tablet Take 1 tablet every day by oral route. 02/01 completed Not Available Not Available Not Available Plenvu 140 gram-9 gram-5.2 gram powder packs USE 3 PACKETSA DISSOLVE D IN WATER DIRECTED FOLLOW INSTRUCT IONS GIVEN TO YOU BY OFFICE 07/22 completed Not Available Not Available Not Available Ethelmaruavis Inhub 250 mcg-50 mcg/dose powder for inhalatio n INHALE 1 PUFF BY MOUTH TWICE DAILY DIRECTED . RINSE MOUTH AFTER USE active Not Available Not Available No t Available Flowflex COVID-19 Antigen Home Test kit TEST DIRECTED TODAY 03/18 completed Not Available Not Available Not Available Vitals Date Recorded Body height Body mass index (BMI) Body weight Heart rate Oxygen saturation Oxygen saturation in Arterial blood by Pulse oximetry Body temperature Systolic And Diastolic Provider Name and Address Organization Details Last Updated DateTime 5 167.01 cm 34.9 kg/m2 55926.8 7 g 88 /min 97 % 97 % 97.4 [degF] 119/82 mm[Hg] Daisy Jorgensen [facility] 5 16:05:11 Date Recorded Body height Body mass index (BMI) Body weight Heart rate Oxygen saturation Oxygen saturation in Arterial blood by Pulse oximetry Body temperature Systolic And Diastolic Provider Name and Address Organization Details Last Updated DateTime 4 167.01 cm 33.3 kg/m2 55672.4 4 g 88 /min 97 % 97 % 97.8 [degF] 116/80 mm[Hg] Pallavi Gorman MA [facility] 4 15:04:43 Date Recorded Body height Body mass index (BMI) Body weight Oxygen saturation Oxygen saturation in Arterial blood by Pulse oximetry Heart rate Body temperature Systolic And Diastolic Provider Name and Address Organization Details Last Updated DateTime 5 167.01 cm 32.9 kg/m2 64741.3 6 g 97 % 97 % 106 /min 97.5 [degF] 126/79 mm[Hg] Marilu Leyva MA [facility] 5 15:20:51 Date Recorded Body height Body mass index (BMI) Body weight Heart rate Oxygen saturation Oxygen saturation in Arterial blood by Pulse oximetry Body temperature Systolic And Diastolic Provider Name and Address Organization Details Last Updated DateTime 5 167.01 cm 32.8 kg/m2 37362.6 6 g 76 /min 99 % 99 % 97 [degF] 112/75 mm[Hg] Janntete fraser MA [facility] 5 15:23:44 Date Recorded Body height Body mass index (BMI) Body weight Heart rate Oxygen saturation Oxygen saturation in Arterial blood by Pulse oximetry Body temperature Systolic And Diastolic Provider Name and Address Organization Details Last Updated DateTime 4 167.01 cm 34 kg/m2 32481.8 1 g 96 /min 97 % 97 % 96.7 [degF] 133/82 mm[Hg] Pallavi Gorman MA [facility] 4 14:12:03 Social History Question Answer Notes LastModified by Organizat ion Details LastModified Time Tobacco Smoking Status Former Smoker Jannette Arboleda MA [facility] 04/23/2016 15:11:01 Do You Have An Advance Directive? Yes HCP Information not available 08/13/2021 Is Blood Transfusion Acceptable In An Emergency? Yes Information not available 01/31/2015 What Is Your Level Of Caffeine Consumption? Heavy Coffee 5-6 Daily Information not available 11/09/2024 How Much Tobacco Do You Chew? None Information not available 01/31/2015 What Type Of Diet Are You Following? REGULAR Information not available 08/13/2021 Which Illicit Or Recreational Drugs Have You Used? None Information not available 01/31/2015 When Did You Quit Smoking? 6-10yearssi [email or web address] rette Information not available 10/23/2022 Live Alone Or With Others? With Others (Iker), 1 Son, And 2 Dogs Information not available 10/23/2022 Do You Take Precautions To Prevent Distracted Driving? Yes Information not available 08/10/2020 How Often Do You Need To Have Someone Help You When You Read Instructions, Pamphlets, Or Other Written Material From Your Doctor Or Pharmacy? Never Information not available 01/31/2015 Have You Served In The ? No Information not available 04/23/2016 Have You Or Anyone In Your Household Had Any Of The Following Symptoms In The Last 14 Days: Sore Throat, Cough, Chills, Body Aches For Unknown Reasons, Shortness Of Breath For Unknown Reasons, Loss Of Smell, Loss Of Taste, Fever At Or Greater Than 100 Degrees Fahrenheit? No [email or web address] Information not available 08/10/2020 Are You Or Anyone In Your Household A Health Care Provider Or Emergency Responder? No [email or web address] Information not available 08/10/2020 To The Best Of Your Knowledge Have You Been In Close Proximity To Any Individual Who Tested Positive For COVID-19? No Information not available 08/13/2021 Have You Recently Traveled To A COVID-19 High Risk Area Or Gathering In The Last 10 Days? No [email or web address] Information not available 08/10/2020 What Was The Date Of Your Most Recent Tobacco Screening? 03/31/2025 Information not available 03/31/2025 How Many Children Do You Have? 3 Ricky Mathis, And Xiomara Information not available 01/05/2014 Do You Use Protection During Sex? No Information not available 01/31/2015 Do You Use Your Seat Belt Or Car Seat Routinely? Yes Information not available 08/13/2021 Seat Belts Used Routinely Yes Information not available 08/13/2021 Are You Sexually Active? Yes Information not available 01/31/2015 Smoke Alarm In Home Yes Information not available 08/13/2021 Do You Have Smoke And Carbon Monoxide Detectors In Your Home? Yes Information not available 08/13/2021 At What Age Did You Start Smoking Tobacco? 23 Quit At 45 Information not available 04/23/2016 Are You Passively Exposed To Smoke? Yes Information not available 08/13/2021 Do You Use Sunscreen Routinely? No Information not available 01/31/2015 How Many Years Have You Smoked Tobacco? 22 [email or web address] Information not available 08/10/2020 Sex: Unknown Functional Status Question Answer Note LastModified by Organizat ion Details LastModified Time Do you use any illicit or recreational drugs? No Information not available 08/13/2021 Do you or have you ever used any other forms of tobacco or nicotine? No Information not available 08/13/2021 What is your level of alcohol consumption? None Information not available 08/13/2021 Do you or have you ever used smokeless tobacco? Never used smokeless tobacco Information not available 08/08/2019 Are you currently employed? Yes Information not available 01/05/2014 Are you able to walk independently without assistance or assistive devices? YESWOREST Information not available 08/13/2021 Are you able to care for yourself independently? 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 Never used electronic cigarettes Information not available 08/13/2021 What is your exercise level? Occasional Information not available 11/09/2024 Mental Status None recorded. Family History Relationship Description Onset Age of this Age Resolved Age Notes LastModified by Organization Details LastModified Time Mother Malignant neoplasm of breast [email or web address] s Not available 10/12/2015 16:19:14 Mother Arthritis [email or web address] s Not available 10/12/2015 16:19:14 Father Gout [email or web address] Not availa ble 08/13/2021 15:36:11 Father Myocardial infarction deceas ed [email or web address] Not available 08/13/2021 15:36:11 Son Migraine [email or web address] Not available 07/06/2017 16:08:50 Unspecified Relation Depressive disorder [email or web address] s Not available 10/12/2015 16:19:14 Unspecified Relation Suicide [email or web address] Not available 06/2021 15:36:11 Unspecified Relation History of malignant neoplasm [email or web address] Not available 15:36:11 Unspecified Relation Asthma [email or web address] s Not available 10/12/2015 16:19:14 Daughter Diabetes mellitus [email or web address] s Not available 10/12/2015 16:19:14 Sister Anxiety disorder kccox [place] lawntone Not available 15:36:11 Medical History Condition Response Depression Y Obesity Y Acid Reflux (GERD) N Asthma Y Allergies Y Reflux/GERD Y Gynecological History Statement/Question Response Menses Monthly N If Post Menopausal, Age at Menopause 89 4 Date of Last Pap Smear 03/21/2019 Date of Last Colonoscopy 10/26/2020 Most Recent Mammogram 12/14/2019 Most Recent Bone Density Obstetrics History GPAL:G 0 P 0 0 0 0 Immunizations Vaccine Type Date Status Note Provider Nam e and Address Organization Details Recorded Time Influenza, split virus, trivalent, preservative 5 completed Not Available [facility] 03/04/2021 23:57:02 Influenza, split virus, trivalent, preservative 6 completed Not Available [facility] 03/04/2021 23:57:02 Influenza, split virus, trivalent, preservative 7 completed Not Available [facility] 03/04/2021 23:57:02 Influenza, split virus, trivalent, preservative 8 completed Not Available [facility] 03/04/2021 23:57:02 Influenza, split virus, trivalent, preservative 9 completed Not Available [facility] 03/04/2021 23:57:02 Tdap 0 completed Not Available [facility] 03/04/2021 23:57:02 Influenza, split virus, quadrivalent, preservative 0 completed Not Available [facility] 03/04/2021 23:57:02 Influenza, split virus, trivalent, PF 5 completed Not Available [facility] 07/02/2019 02:21:58 Tdap 9 completed Not Available [facility] 03/04/2021 23:57:02 influenza, seasonal, intradermal, preservative free 2 completed Not Available [facility] 03/04/2021 23:57:02 influenza, seasonal, intradermal, preservative free 3 completed Not Available [facility] 03/04/2021 23:57:02 Td (adult), 2 Lf tetanus toxoid, preservative free, adsorbed 9 completed Not Available [facility] 07/02/2019 02:21:30 Influenza, split virus, trivalent, PF 4 completed Not Available [facility] 07/02/2019 02:21:57 Past Encounters Encounter ID Performer Location Encounter Start Date Encounter Closed Date Diagnosis/Indication Diagnosis SNOMED-CT Code Diagnosis ICD10 Code Diagnosis IMO Codes Diagnosis Note [id number] Ricky Bowie MD Main Office [address] [facility] [address] [place] [address] 01/05/2014 13:58:40 01/05/2014 15:36:12 Neck pain 68844232 Allergic asthma 041237299 Tobacco de pendence syndrome 04905620 Major depr ession single episode, in partial remission [id number] [facility] [address] [facility] [place] [address] 09/08/2006 00:00:00 [id number] [employer] [facility] [address] [facility] [place] [address] 09/29/2006 00:00:00 [id number] [facility] [facility] [address] [facility] [place] [address] 02/02/2007 00:00:00 [id number] [employer] [address] [facility] [place] [address] 02/16/2007 00:00:00 [id number] [employer] [facility] [address] [facility] [place] [address] 05/18/2007 00:00:00 [id number] [facility] [facility] [address] [facility] [place] [address] 07/30/2007 00:00:00 [id number] [employer] [facility] [address] [facility] [place] [address] 12/30/2007 00:00:00 [id number] [address] [place] [address] 01/17/2008 00:00:00 [id number] [employer] [address] [place] [address] 10/06/2008 00:00:00 [id number] [employer] [address] [place] [address] 01/29/2010 00:00:00 [id number] [facility] [facility] [address] [place] [address] 03/19/2010 00:00:00 [id number] [employer] [facility] [address] [place] [address] 06/25/2010 00:00:00 [id number] [employer] [address] [facility] [place] [address] 01/15/2011 00:00:00 [id number] [employer] [address] [facility] [place] [address] 04/11/2011 00:00:00 [id number] [employer] [address] [place] [address] 06/24/2011 00:00:00 [id number] [employer] [address] [facility],[address] [place] [address] 09/23/2011 00:00:00 [id number] [employer] [address] [facility],[address] [place] [address] 11/07/2011 00:00:00 [id number] [employer] [address] [facility],[address] [place] [address] 03/30/2012 00:00:00 [id number] [employer] [address] [facility],[address] [place] [address] 10/27/2012 00:00:00 [id number] [employer] [address] [facility],[address] [place] [address] 11/20/2012 00:00:00 [id number] [employer] [address] [facility],[address] [place], [place] [address] 12/09/2012 00:00:00 [id number] [employer] [address] [facility],[address] [place], [place] [address] 03/11/2013 00:00:00 [id number] [employer] [address] [facility],[address] [place], [place] [address] 04/08/2013 00:00:00 [id number] [employer] [address] [facility],[address] [place], [place] [address] 2013 00:00:00 [id number] Ricky Bowie MD Main Office [address] [address] [place] [address] 04/11/2014 13:44:12 04/11/2014 14:59:28 Needs influenza immunization 936510258 Adult heal th examination 692011925 Major depr ession single episode, in partial remission 51120369 Allergic rhinitis 95950438 Moderate p ersistent asthma 285518328 Screening for malignant neoplasm of breast 152166048 Tobacco de pendence syndrome 17198133 [id number] SHABAAN Keyes Main Office [address] [address] [place] [address] 08/22/2014 11:07:20 08/22/2014 11:37:14 Acute sinusitis 49046290 [id number] Ricky Bowie MD Main Office [address] [address] [place] [address] 10/12/2014 10:46:52 10/12/2014 11:30:34 Asthma 201728627 Major depr ession single episode, in partial remission 01086799 Tobacco de pendence syndrome 54374699 Inflammati on of sacroiliac joint 76610622 [id number] Ricky Bowie MD Main Office [address] [address] [place] [address] 01/31/2015 13:18:36 01/31/2015 14:19:45 Moderate persistent asthma 290587843 Major depr ession single episode, in partial remission 78194780 Tobacco de pendence syndrome 32229573 [id number] Ricky Bowie MD Main Office [address] [address] [place] [address] 03/29/2015 09:25:24 03/29/2015 10:32:16 Gastroesophageal reflux disease 663886165 K21.9 Moderate p ersistent asthma 926993996 J45.40 Anxiety 11418225 F41.9 Hyperlipidemia 45814680 E78.5 Fatigue 80729624 R53.83 [id number] Ricky Bowie MD Main Office [address] [address] [place] [address] 04/12/2015 09:01:05 04/12/2015 09:52:34 Adult health examination 749223013 Z00.00 Moderate p ersistent asthma 003257488 J45.40 Screening for malignant neoplasm of cervix 238178808 Z12.4 Screening for malignant neoplasm of breast 476967498 Z12.39 Allergic rhinitis 618617 04 J30.9 Major depr ession single episode, in partial remission 26802237 F32.4 Needs infl uenza immunization 544780009 Z28.3 Tobacco de pendence syndrome 32079244 F17.290 [id number] SHABANA Eubanks Main Office [address] [place] [address] 08/16/2015 13:44:47 08/16/2015 14:57:27 Sinusitis 35323325 J32.9 Symptomati c treatment- lots of fluids, rest, tea with honey, OTC cough drops/ cough med as needed, humidifier , nasal sinus rinses as needed, augmentin BID as prescribed , flonase as directed. [id number] Ricky Bowie MD Main Office [address] [address] [place] [address] 10/12/2015 15:56:32 10/12/2015 16:58:03 Asthma 021624904 J45.909 Major depr ession single episode, in partial remission 89872509 F32.4 Stable on bupropion Anxiety 97516671 F41.9 Neck pain 81642117 M54.2 Fatigue 38563468 R53.83 Tobacco de pendence syndrome 43119484 F17.290 [id number] Ricky Bowie MD Main Office [address] [address] [place] [address] 04/23/2016 14:41:22 04/23/2016 15:57:40 Asthma 310043934 J45.909 Hypersomnia 52744148 G47 .10 Major depr essive disorder 135824540 F32.9 Anxiety state 422952134 F41.1 [id number] Ricky Bowie MD Main Office [address] [address] [place] [address] 05/27/2016 09:47:52 05/27/2016 10:24:03 Asthma 260283901 J45.909 Allergic rhinitis 329740 04 J30.9 Acute sinusitis 12845492 J01.90 [id number] Ricky Bowie MD Main Office [address] [address] [place] [address] 07/04/2016 15:14:40 07/04/2016 16:07:41 Adult health examination 933094345 Z00.00 Dysuria 24693202 R30.0 Hyperlipidemia 06185771 E78.5 Fatigue 37507649 R53.83 Greater tr ochanteric pain syndrome 9836249 M70.62 Body mass index 25-29 - overweight 605377174 E66.3 Z68.25 Major depr ession single episode, in partial remission 04208439 F32.4 Stable on bupropion [id number] Ricky Bowie MD Main Office [address] [address] [place] [address] 01/01/2017 15:29:06 01/01/2017 16:32:47 Allergic asthma 966873954 J45.909 Major depr ession single episode, in partial remission 66710474 F32.4 Stable on bupropion and sertraline Anxiety 38969015 F41.9 Neck pain 81309368 M54.2 [id number] Ricky Bowie MD Main Office [address] [address] [place] [address] 07/06/2017 15:22:22 07/06/2017 16:33:33 Adult health examination 955699651 Z00.00 Moderate p ersistent asthma 926036601 J45.40 Stable on ICS/LABA and montelukas t Asthma 971576611 J45.90 9 Major depr ession single episode, in partial remission 64805727 F32.4 Stable on bupropion and sertraline Obesity 109641739 E66.9 Body mass index 30+ - obesity 871468296 Z68.34 Low back pain 475615674 M54.5 Hyperlipidemia 17735114 E78.5 Fatigue 31281292 R53.83 [id number] Ricky Bowie MD Main Office [address] [address] 12/28/2017 15:15:20 12/28/2017 16:29:47 Asthma 451658147 J45.30 Loss of hair 467383585 L 65.9 Major depr ession single episode, in partial remission 50004307 F32.4 Stable on bupropion and sertraline Obesity 999352961 E66.9 Body mass index 30+ - obesity 494307631 Z68.33 [id number] Ricky Bowie MD Main Office [address] [address] 08/06/2018 15:16:07 08/06/2018 16:43:44 Adult health examination 862353890 Z00.00 Requires a tetanus booster 866668368 Z23 Carpal nadia octavia syndrome 21868179 G56.01 Major depr ession single episode, in partial remission 04094134 F32.4 Stable on bupropion and sertraline Obesity 209208963 E66.9 Z68.30 Obstructiv e sleep apnea syndrome 44192568 G47.33 AHI= 12. Stable on CPAP [id number] Sudarshan Rodriguez MD Main Office [address] [address] 02/01/2019 15:08:18 02/01/2019 15:57:00 Major depression single episode, in partial remission 64630188 F32.4 Stable on meds. will refill. Asthma 861691262 J45.90 9 Loss of hair 370515778 L 65.9 c/o hair loss, she attributes this to wellbutrin but this is not a side effect. will refer to derm. Trigger th umb of right hand 8837580502 83374 M65.311 [id number] Ricky Bowie MD Main Office [address] [facility] [address] [place] [address] 08/08/2019 15:13:20 08/08/2019 16:35:25 Adult health examination 145005797 Z00.00 Hyperlipidemia 59625536 E78.5 Fatigue 74963041 R53.83 Major depr ession single episode, in partial remission 89738886 F32.4 Stable on bupropion and sertraline Screening for malignant neoplasm of colon 551571924 Z12.11 Obstructiv e sleep apnea syndrome 80710358 G47.33 AHI= 12. Stable on CPAP [id number] Sudarshan Rodriguez MD Main Office [address] [facility] [address] [place] [address] 08/10/2020 12:59:07 08/10/2020 13:55:53 Adult health examination 445338800 Z00.00 HM UTD, due for colo. Hyperlipidemia 19682609 E78.5 Fatigue 54333571 R53.83 Major depr ession single episode, in partial remission 34903232 F32.4 Stable on bupropion, will increase sertraline to 100mg daily Screening for malignant neoplasm of colon 543199398 Z12.11 due for colo, she will schedule Obstructiv e sleep apnea syndrome 19267904 G47.33 AHI= 12. Stable on CPAP Impaired f asting glycemia 200947053 R73.01 Vitamin D deficiency 347 52157 E55.9 Dysfunctio n of eustachian tube 94812332 H69.92 left sided ear pain/ discomfort . start flonase daily, hydrate- not drinking enough water. Bunion 288005846 M21.61 1 M21.612 requests podiatry referral. [id number] Sudarshan Rodriguez MD [address] [place] [address] 04/18/2021 09:37:21 04/18/2021 16:35:40 Urinary tract infectious disease 78077448 N39.0 She will call if her symptoms persist and we will get a sample for UA/UCx [id number] Sudarshan Rodriguez MD [facility] [address] [facility] [address] [place] [address] 07/22/2021 08:25:41 07/22/2021 15:58:54 Acute conjunctivitis 60553860 H10.32 [id number] Sudarshan Rodriguez MD Main Office [address] [facility] [address] [place] [address] 08/13/2021 15:30:09 08/13/2021 16:20:43 Adult health examination 350293666 Z00.00 HM UTD, due for colo. Screening for malignant neoplasm of breast 739316904 Z12.39 Asthma 887635150 J45.90 9 Screening for malignant neoplasm of cervix 169398232 Z12.4 Hyperlipidemia 73711246 E78.5 Fatigue 35286540 R53.83 feeling extreme fatigue, she has gained 36lbs in the last year and this is likely related. may need CPAP titration study. Major depr ession single episode, in partial remission 00290171 F32.4 Stable on bupropion, will increase sertraline to 100mg daily Obstructiv e sleep apnea syndrome 85702407 G47.33 AHI= 12. Stable on CPAP Impaired f asting glycemia 087151646 R73.01 Vitamin D deficiency 347 24852 E55.9 Anemia 122329822 D64.9 155154 STEFANI LAFLEUR MD Main Office [address] [facility] [address] [place] [address] 03/18/2022 13:35:15 03/18/2022 14:16:16 Pain of right knee joint 1804167994 30677 M25.561 - most likely OA of the knee- on physical exam there was no concern for possible tear- ordered x-ray of the knee for further evaluation - to help with the pain ordered diclofenac 75mg Q12HRS to be taken for 14 days and than PRN- pt counselled to take medication with food- pt counselled to have blood work before starting medication to evaluate kidney function (order already placed on 08/2021)- c/w heat and icing- if no improvemen t will refer patient to physical therapy Complex re gional pain syndrome 064241951 G90.50 - pt having pain above the patella that is sharp with associated numbness- when something touches area causes pain- and pain was elicited on physical exam however not severe- will consider starting patient on gabapentin if no improvemen t with NSAIDs [id number] Sudarshan Rodriguez MD Main Office [address] [facility] [address] [facility] [place] [address] 10/23/2022 08:22:47 10/23/2022 09:19:41 Adult health examination 869329822 Z00.00 HM UTD, colo done 10/2020 due in 5 years. due for mammo and pap- she will schedule, due for bloodwork. Screening for malignant neoplasm of breast 167668840 Z12.39 Asthma 292725823 J45.90 9 Screening for malignant neoplasm of cervix 158563582 Z12.4 Hyperlipidemia 21017866 E78.5 Fatigue 58068207 R53.83 Major depr ession single episode, in partial remission 07077915 F32.4 Stable on bupropion, PHQ-9 . JULIANNE . will increase sertraline to 150mg daily. 413CARES informatio n provided to patient, she will call for appt for therapy. Obstructiv e sleep apnea syndrome 06963714 G47.33 AHI= 12. Stable on CPAP Impaired f asting glycemia 901009527 R73.01 Vitamin D deficiency 347 20937 E55.9 Overactive urinary bladder 138913063 N32.81 has not been on oxybutynin for a few months as she ran out, this was likely helping with her hot flashes as well, will refill. Muscle spa sm of cervical muscle of neck 0306881107 04 M62.838 flexeril as needed, heat 3-4 times daily as needed, gentle stretching as tolerated. [id number] Sudarshan Rodriguez MD Main Office [address] [facility] [address] [place] [address] 11/05/2023 08:57:49 11/05/2023 09:36:45 Adult health examination 259539832 Z00.00 HM UTD, colo done 10/2020 due in 5 years. due for mammo and pap- she will schedule, due for bloodwork. Screening for malignant neoplasm of breast 891317958 Z12.39 Screening for malignant neoplasm of cervix 549647297 Z12.4 Hyperlipidemia 29601297 E78.5 Fatigue 94865201 R53.83 Major depr ession single episode, in partial remission 31392340 F32.4 Stable on bupropion, PHQ-9 . JULIANNE . will increase sertraline to 150mg daily. 413CARES informatio n provided to patient, she will call for appt for therapy. Obstructiv e sleep apnea syndrome 50720917 G47.33 AHI= 12. Stable on CPAP Impaired f asting glycemia 528097510 R73.01 Vitamin D deficiency 347 03242 E55.9 Overactive urinary bladder 252648359 N32.81 has not been on oxybutynin for a few months as she ran out, this was likely helping with her hot flashes as well, will refill. Exacerbati on of moderate persistent asthma 344868707 J45.41 [id number] Sudarshan Rodriguez MD Main Office [address] [facility] 207 [facility] [place] [address] 11/23/2023 14:58:20 11/23/2023 15:19:23 Vomiting 096053086 R11.10 reviewed hospital documentat ion-was provided with zofran- provides relief-jn quency and severity have improved since discharge- pt notes triggers include oily/greas y foods-like ly related to hx of GERD-pt agrees and will try OTC antacids- if no relief may need to go back on PPI Gastroesop hageal reflux disease 085012187 K21.9 hx of cholecyste ctomy, 2013-has had intermitte nt symptoms of GERD since-was on omeprazole for relief- no longer needed The following lifestyle changes are recommende d and counseled : -Losing weight: Losing weight helps people who are overweight to reduce acid reflux. -Raising the head of your bed six to eight inches -Avoiding foods that trigger symptoms Avoid excessive caffeine, chocolate, alcohol, peppermint , and fatty foods. -Quitting smoking [id number] Sudarshan Rodriguez MD Main Office [address] [facility] 207 [facility] [place] [address] 04/14/2024 14:05:05 04/14/2024 14:24:56 Nausea and vomiting 91559177 R11.2 3rd episode of n/v brown fluid in the last 6 months-den ies of any chronic nsaid usage, no new medication s, or recent food poisoning- last episode occurred yesterday, still endorses nausea-has not taken anything OTC for relief-hanny l provide zofran prn Gastroesop hageal reflux disease 014495622 K21.9 hx of cholecyste ctomy, 2013-has had intermitte nt symptoms of GERD since-was on omeprazole for relief- no longer needed>dis cussed with pt if interested in going back on omeprazole to contact the office-giv en this is pt 3 episode in the last 6 months of light/dark brown vomit, will order endoscopy to r/o ulcers etc [id number] Sudarshan Rodriguez MD Main Office [address] [facility] [place] [address] 11/09/2024 15:38:29 11/09/2024 16:27:15 Adult health examination 891331005 Z00.00 HM UTD, colo done 10/2020 due in 5 years. due for mammo and pap- she will schedule, due for bloodwork. Screening for malignant neoplasm of breast 007980434 Z12.39 Screening for malignant neoplasm of cervix 899850749 Z12.4 Hyperlipidemia 17119846 E78.5 Major depr ession single episode, in partial remission 41146523 F32.4 Stable on bupropion, PHQ-9 . JULIANNE . will increase sertraline to 150mg daily.413C SHAILA informatio n provided to patient, she will call for appt for therapy. Obstructiv e sleep apnea syndrome 92572536 G47.33 AHI= 12. Stable on CPAP Impaired f asting glycemia 711561919 R73.01 Vitamin D deficiency 347 45633 E55.9 Overactive urinary bladder 965268015 N32.81 has not been on oxybutynin for a few months as she ran out, this was likely helping with her hot flashes as well, will refill. [id number] STEFANI LAFLEUR MD Main Office [address] [facility] [place] [address] 03/17/2025 15:06:41 03/17/2025 16:20:18 Severe depression 572631615 F32.2 514869 - Patient is presenting with severe depression and deteriorat ion in mental health based on HPI and PHQ and JULIANNE screening- Taking bupropion and sertraline as prescribed . Current regimen is ineffectiv e based on severity of symptoms. Increasing bupropion dose to 300mg. Instructed patient to fill prescripti on and discontinu e 150mg tabs. Instructed to continue sertraline as prescribed .- Patient has been missing work frequently as a result of her symptoms and is running out of sick time. Instructed to bring FMLA paperwork into office so provider may ascertain what is needed.- Referring to mental health counselor. Instructed patient to find therapist ISIAH. Provided mental health resources including [facility] crisis line to be used in the meantime.- Follow up in 2 weeks to assess potential response to increased dose, ensure patient safety and well-being , and assess any challenges with finding therapist. It may be too early to appreciate efficacy of increased dose at visit; may consider scheduling subsequent 2 week follow up. Instructed patient on when to call crisis line or contact EMS in the meantime. ADDED by MD> patient denies any SI/HI (patient was asked) [id number] CRISTY MACKEY Main Office [address] [facility] [address] [place] [address] 03/31/2025 15:09:10 03/31/2025 16:03:49 Severe depression 817085073 F32.2 [id number] Encounter 03/17/25- Patient is presenting with severe depression and deteriorat ion in mental health based on HPI and PHQ and JULIANNE screening- Taking bupropion and sertraline as prescribed . Current regimen is ineffectiv e based on severity of symptoms. Increasing bupropion dose to 300mg. Instructed patient to fill prescripti on and discontinu e 150mg tabs. Instructed to continue sertraline as prescribed .- Patient has been missing work frequently as a result of her symptoms and is running out of sick time. Instructed to bring FMLA paperwork into office so provider may ascertain what is needed.- Referring to mental health counselor. Instructed patient to find therapist ISIAH. Provided mental health resources including [facility] crisis line to be used in the meantime.- Follow up in 2 weeks to assess potential response to increased dose, ensure patient safety and well-being , and assess any challenges with finding therapist. It may be too early to appreciate efficacy of increased dose at visit; may consider scheduling subsequent 2 week follow up. Instructed patient on when to call crisis line or contact EMS in the meantime.- Denies SI/HI Encounter 03/31- Patient reports improved mood since moving into her own apartment and starting increased dose of bupropion. She does however report dizziness with increased dose of bupropion. Instructed patient to try taking medication at night instead of in the morning. If continuing to experience dizziness despite taking at night, may need to switch back to lower dose.- Encouraged patient to continue searching for therapist. Educated to use full 10-digit phone number when dialing on mobile phone.- RTC in 2 weeks to evaluate for continued improvemen t in symptoms, monitor for side effects. If experienci ng side effects, instructed pt to contact ISIAH before stopping medication .- Patient denies SI/HI. Instructed to call 911 or behavioral health crisis line if she is experienci ng SI/HI or thoughts of self harm. Patient demonstrat es understand ing of plan of care. Anxiety 09172734 F41.9 Influenza vaccination declined 412740692 Z28.21 [id number] Health Concerns Section Related Observation LastModified by Organization Detai ls LastModified Time None Recorded Concern Status LastModified by Organization Details LastModified Time None Recorded Advance Directives Directive Y: HCP Payers Insurance Date Sequence Insurance Name Policy Number Policy Hernandez Covered Member ID Hernandez Member ID Guarantor Name 04/10/2025 1 [facility] [place] [id number] 01 Jeimy Yanezmonica [id number] Jeimy Olivaskatherine Notes Date Note Type Note Provider Name and Address Organization Details Recorded Time 11/23/19 24 text/htm l ROS as noted in the HPI Jeimy is a 53yr old F who presents for a hospital f/u. Follow Up Hospital: [facility] date: 11/19/23Date of discharge: 11/19/23 Jeimy was evaluated at [facility] for x5 days of generalized malaise and nausea with a few days of non bloody, non bilious vomiting. Denies of any abdominal pain. No urinary symptoms or abnormal vaginal bleeding/discharge. Denies of fever and has had some chills. Pt was given IV fluids and zofran. chest xray, labs, and UA were unremarkable. CRISTY MACKEY [address] [address], [place], [address], [facility] 11/24/2023 21:23:09 04/14/20 24 text/htm l VomitingReported by PatientHPI:For associated symptoms, patient reportsnauseaandfatiguebut reportsno abdominal pain,no excess gas,no fever,no chills,no frequent coughing,no sore throat,no headache, andno rash. For severity, patient reportsmild. For onset/timing, patient reportsacute. For context, patient reportsno one else with similar symptoms,no possible food sources,no recent travel,no well water,non-smoker,no drug/alcohol abuse, andno drug alcohol withdrawal. For alleviating factors, patient reportsnothing gives relief. For aggravating factors, (leaning forward).ROS as noted in the HPI Jeimy is a 53yr old F who presents for n/v. Hx of GERD. Reports she has had about 3 episodes of n/v brown fluids over the last 6 months. Had 2 episodes of vomiting brown fluids yesterday. Still experiencing nausea today. Denies of any chronic NSAID usage. No longer takes omeprazole, still endorses acid reflux. CRISTY MACKEY [address] [address], [place], [address], [facility] 04/14/2024 14:33:25 11/10/19 25 text/htm l ROS as noted in the HPI Jeimy is a 54yr old F who presents for annual PE. CRISTY MACKEY [address] [facility] [address], [place], [address], [facility] [place] 11/09/2024 16:24:50 03/17/20 25 text/htm l Anxiety/DepressionReported by PatientHPIFor quality, patient reportsmood worseandincreased anxiety(symptoms feel different than before.doing normal activities feels like a major task.). For severity, patient reportsunable to maintain relationships ( from , unable to care for grandchild),interference with household activities,interference with sleep, andinterference with work (has been calling out a lot)but reportsdenies suicidal ideations( i feel nothing ). For context, patient reportsfamily problemsandrelationship stress(hard time communicating with , in part because of depression.wants to separate physically from her and is going to be moving out tomorrow. states they are not breaking up, she just wants some physical distance. she is feeling very anxious about it.). For associated symptoms, patient reportsanxiety,depression,lone liness,insomnia,sleep disturbances,anxiety with muscle tension,despair/hopelessness,s ocial withdrawal (doesn't feel connected to loved ones), andheadaches (constant, associated with tension)but reportsdenies homicidal ideations,no significant weight gain, andno significant weight loss(had an episode last week where she forgot where she was. has had a couple other instances of forgetfulness.). For modifying factors, patient reportsmedications as directed (bupropion 150mg daily, sertraline 150mg daily)(feels that she isolates herself from support. she is not currently going to therapy. she has gone to therapy before but felt like it was too superficial.). For duration, (started to really decline over the past week after an argument with her .). For onset/timing, (has been going on for months).ROS as noted in the HPI Jeimy is a 54 year old F with PMH of anxiety, depression, HLD, prediabetes, vit D deficiency, GERD, anemia, asthma, insomnia, THAO, and former tobacco use. She is presenting today with acutely worsening depression and anxiety.Patient has been missing a lot of work as a result of symptoms and is now needing [facility] paperwork completed. STEFANI LAFLEUR MD [address], [id number], [facility] 03/17/2025 17:28:46 03/31/20 25 text/htm l ROS as noted in the HPI Jeimy is a 54 year old F with PMH of anxiety, depression, HLD, prediabetes, vit D deficiency, GERD, anemia, asthma, insomnia, THAO, and former tobacco use. She is presenting today for follow up on severe depression after initiating a higher dose of bupropion (increased from 150mg to 300mg). Second Encounter 03/31- Patient reports she has been feeling a bit better. She has noticed good days and bad days. Today she is feeling less heavy hearted but continues to endorse anxiety.- She reports she moved out from living with her . They are still together and she is reporting he is very supportive of her taking care of her mental health. She thinks this has been helpful too. She states she feels like she should have done this a long time ago. She likes her apartment in [place]. Before she moved, it was always about everyone else. - She has started looking for a therapist but has not found one yet who takes her insurance. She has had a hard time reaching the phone numbers for therapists who do take her insurance. She does note she only dialed the 7-digit phone numbers without the area code. She wants therapy to support her coping skills.- Reporting dizziness with increased dose of bupropion. She noticed it 3-4 days after starting the increased dose. She stopped taking the bupropion for a few days and the dizziness improved. She then restarted taking it today and notices some dizziness again. She does take it in the morning but is wondering if maybe she could take it at night to help with the dizziness. Denies other side/adverse effects with medication.- Denies SI/HI when asked. CRISTY MACKEY [address] [facility] [address], [place], [address], [place] [facility] 04/05/2025 08:47:34 OBGyn Episode No OBEpisode recorded.
--- OUTSIDE RECORDS SUMMARY | 2025-04-12 11:53 | XMS_ITS | Clinical Summary ---
Author Organization [facility] [employer] Address [address] [place] [place] [address] Care Team Providers Care Foot And Ankle Surgeon Name Role Phone Pcp, No Primary Care Provider [phone] Allergies Active Allergy Reactions Criticality Noted Date Comments Other 08/12/2010 Absorbable Internal Sutures Oxycodone Other (See Comments) 08/12/2010 SEVERE VOMITING SEVERE VOMITING Medications Bifidobacterium infantis (Align, B.infantis,) 4 mg cap Align Active biotin (MERIBIN) 5 mg cap 0 Refills, Maintenance, 11/14/22 10:47:00 EDT, Partial fill upon patient request if the prescription is for a schedule II opioid drug. 3 Active cetirizine (ZyrTEC) 10 MG tablet Take 1 tablet (10 mg total) by mouth Active cholecalciferol , vitamin D3, (VITAMIN D3) 25 mcg (1,000 unit) tablet Take by mouth Act thomas DOCOSAHEXAENOIC ACID ORAL Take 1,000 mg by mouth 0 Active docusate sodium (COLACE) 100 MG capsule Take 1 capsule (100 mg total) by mouth 3 Active estradioL (VIVELLE-DOT) 0.1 mg/24 hr APPLY 1 PATCH TWICE A WEEK BY TRANSDERMAL ROUTE FOR 84 DAYS. Active lisinopriL (PRINIVIL) 5 MG tablet Take 1 tablet (5 mg total) by mouth 3 Active metroNIDAZOLE (METROCREAM) 0.75 % cream APPLY TO AREAS ON FACE WITH ROSACEA TWICE DAILY NEEDED. Active montelukast (SINGULAIR) 10 mg tablet Take 1 tablet (10 mg total) by mouth 1 Active progesterone (PROMETRIUM) 200 MG capsule Take 1 capsule (200 mg total) by mouth Active co-enzyme Q-10 (CO Q-10) 30 mg capsule Take 1 capsule (30 mg total) by mouth Active triamcinolone (Nasacort) 55 mcg nasal inhaler Inhale 7 Active albuterol (PROVENTIL) 2.5 mg /3 mL (0.083 %) nebulizer solution Take 3 mL (2.5 mg total) by nebulization every 6 (six) hours as needed for wheezing Breathe as calmly, deeply and evenly as possible through mouth until no more mist is formed in the nebulizer chamber (about 5 to 15 minutes).. 75 mL 5 07/03/19 26 Active budesonide (PULMICORT) 180 mcg/actuation inhaler Inhale 2-3 puffs 2 (two) times a day Not to exceed 6 puffs per day (1080mcg per day) 1 each 5 07/03/19 26 Active Active Problems Problem Noted Date Diagnosed Date Disorder of pelvis 07/03/2024 Neoplasm of uncertain behavior of skin of face 0 07/03/2024 Primary localized osteoarthrosis of ankle and fo ot 07/03/2024 Thyroid nodule 07/03/2024 Malignant melanoma of skin 01/05/2024 Migraine with aura 01/05/2024 Multinodular goiter 01/05/2024 Overview (07/03/2024): 16 cm complex right lobe nodule, 9 mm nodule right lower pole nodule, FNA 2012 - benign; stable u/s 2020 Tubular adenoma of colon 01/05/2024 Overview (07/03/2024): EMR done in October 2020. Needs a repeat colonoscopy in Apr 2021 EMR done in October 2020. Needs a repeat colonoscopy in Apr 2021 Urticaria 01/05/2024 Essential (primary) hypertension 02/10/2022 Hip pain 10/28/2011 Overview (07/03/2024): Hip pain Social History Tobacco Use Types Packs/Day Years Used Date Smoking Tobacco: Never Passive Smoke Exposure: Never Smokeless Tobacco: Never Tobacco Cessation:Counseling Given: Not Answered Comments Unknown Sex and Gender Information Value Date Recorded Sex Assigned at Not on file Legal Sex Female 4:20 AM EST Gender Identity Not on file Sexual Orientation Not on file Last Filed Vital Signs Vital Sign Reading Time Taken Comments Blood Pressure 109/71 07/03/2024 10:07 AM EST Pulse 81 07/03/2024 10:07 AM EST Temperature 37 C (98.6 F) 07/03/2024 10:07 AM EST Respiratory Rate 20 07/03/2024 10:07 AM EST Oxygen Saturation 99% 07/03/2024 10:07 AM EST Inhaled Oxygen Concentration - - Weight - - Height - - Body Mass Index - - Plan of Treatment Health Maintenance Due Date Last Done Comments COVID-19 Vaccine Screening: Initial Series and Booster Status ([facility]) (#1) 1974 Depression: Screening Annual ly using PHQ-2/9 in Adults 18 yrs or above (or HM Modifier)([facility]) 09/13/1987 Hepatitis C Virus Infection in Adolescents and Adults: Screening (or Modifier) ([facility]) 09/13/1987 THAO Screening: Once using ST OP-BANG Questionnaire for Adults with Conditions or high BMI([facility]) 09/13/1987 SDOH Screening Reminder: Estefany gray for all adults ([facility]) 09/13/1987 DTaP/Tdap/Td Vaccines ([facility]) (1 - Tdap) 1988 Pneumococcal Vaccination Scr eening: Patients 50+ yrs of age ([facility]) (1 of 2 - PCV) 1988 Zoster/Shingles Vaccine Seri es Screening: Adults aged 18+ yrs (or HM Modifiers)([facility]) (1 of 2) 1988 Cervical Cancer Screenin 1-65 yrs of age (or Modifier) 1990 Cervical Cancer Screening: P ap every 3 yrs pts age 21-65 1990 Cervical Cancer: Pap Screeni ng with Modifier timing ([facility]) 1990 Cervical Cancer: hrHPV alone or with cotesting Pap for Pts 30-65yrs screening every 5yrs ([facility]) 1990 Colorectal Cancer: FLEXIBLE SIGMOIDOSCOPY Screening every 5 yrs 2014 Colorectal Cancer: Fecal Imm unochemical Test (FIT) Annually [facility] 2014 Colorectal Cancer: High-sens itivity gFOBT Screening Annually [facility] 2014 Colorectal Cancer: Stool Col oguard Screening every 3 yrs 2014 Colorectal Cancer:CT Colonog shaan Screening every 5 yrs 2014 Breast Cancer: Screening Estefany ually age 50-74 yrs (or HM Modifier)([facility]) 09/13/2019 Flu Vaccination: Yearly for ages 18mos through 64 years (or Modifier)([facility]) 01/13/2025 Colorectal Cancer Screening 45 -75 Yrs (or HM Modifier) 06/28/2034 Colorectal Cancer: COLONOSCO PY Screening every 10 yrs (or Modifier) 06/28/2034 06/28/2024 Medical Devices Not on file Insurance [facility] Care Teams Foot And Ankle Surgeon Relationship Specialty Start Date End Date Pcp, No PCP - General Family Medicine 07/03/24
--- OUTSIDE RECORDS SUMMARY | 2025-04-12 11:53 | XMS_ITS | Clinical Summary ---
Author Organization [facility] Address [address] [facility] [address] [place] [address] Phone Care Team Providers Care Dock Loader Name Role Phone Ameya Sepulveda MD Primary Care Provider [phone] Allergies Active Allergy Reactions Criticality Noted Date Comments Oxycodone Other (see comments) 08/12/2010 SEVERE VOMITING Medications fexofenadine (LIBBY) 180 MG tablet Take 180 mg by mouth 1 (one) time each day Active Probiotic Product (Align) 4 MG capsule Take by mouth Act thomas co-enzyme Q-10 30 MG capsule Take 30 mg by mouth 1 (one) time each day Active omega-3 (FISH OIL) 1000 MG capsule Take by mouth 1 (one) time each day Active desogestrel-eth inyl estradiol (KARIVA) 0.15-0.02/0.01 MG (02/11) per tablet Take 1 tablet by mouth 1 (one) time each day Active oxybutynin XL (DITROPAN-XL) 5 MG 24 hr tablet Take 5 mg by mouth 1 (one) time each day Do not crush, chew, or split. Active acetaminophen (TYLENOL) 325 MG tablet Take by mouth every 6 (six) hours if needed for mild pain prn Active Cholecalciferol (Vitamin D) 25 MCG (1000 UT) tablet Take by mouth Active albuterol HFA (PROVENTIL HFA;VENTOLIN HFA) 108 (90 Base) MCG/ACT inhaler Inhale 2 puffs every 6 (six) hours if needed for wheezing Active montelukast (SINGULAIR) 10 MG tablet Take 10 mg by mouth every night Active Turmeric 500 MG capsule Take by mouth Active Active Problems Problem Noted Date Diagnosed Date Essential (primary) hypertension 02/10/2022 Resolved Problems Problem Noted Date Diagnosed Date Resolved Date Malignant melanoma of skin 10/15/2021 0 02/10/2022 Urticaria 10/15/2021 02/10/2022 Thyroid nodule 10/15/2021 02/10/2022 Migraine with aura 10/15/2021 2 Disorder of pelvis 10/15/2021 2 Low back pain co-occurrent w ith neuralgia of right sciatic nerve 10/05/2019 02/10/2022 Family History Medical History Relation Comments Hypertension Father Diabetes type II Maternal Grandfather Heart attack Maternal Grandfather Heart disease Maternal Grandfather Colon cancer Maternal Grandmother Hypertension Mother Stroke Mother Relation Status Comments Father Maternal Grandfather Maternal Grandmother Mother Social History Tobacco Use Types Packs/Day Years Used Date Smoking Tobacco: Never Smokeless Tobacco: Never Alcohol Use Standard Drinks/Week Comments Yes 0 (1 standard drink = 0.6 oz pur e alcohol) 1-2 times per week Comments Unknown Sex and Gender Information Value Date Recorded Sex Assigned at Not on file Legal Sex Female 9:57 AM EDT Gender Identity Not on file Sexual Orientation Not on file Plan of Treatment Health Maintenance Due Date Last Done Comments Breast Cancer Screening 1969 Hepatitis B Vaccine (1 of 3 - 19+ 3-dose series) 09/12 Colorectal Cancer Screening: Annual FOBT 2018 Colorectal Cancer Screening: Colonoscopy 2018 Colorectal Cancer Screening: Sigmoidoscopy 2018 Pneumococcal Vaccine: 50+ Years (1 of 1 - PCV) 020 Influenza Vaccine (#1) 2025 Insurance [facility] Care Teams Dock Loader Relationship Specialty Start Date End Date Ameya Sepulveda MD [address] [place] [address] PCP - General Internal Medicine 09/05/21
--- OUTSIDE RECORDS SUMMARY | 2025-04-12 11:53 | XMS_ITS | Clinical Summary ---
Author Organization [facility] Address [address] [place] [address] Phone Care Team Providers Care Senior Statistical Programmer Name Role Phone Ameya Sepulveda MD Primary Care Provider + [phone] Allergies Active Allergy Reactions Criticality Noted Date Comments Other 08/12/2010 Absorbable Internal Sutures Oxycodone Other 08/12/2010 SEVERE VOMITING SEVERE VOMITING Medications omega 0-gut-wut-fish oil (Fish OiL) 1,000 (120-180) mg capsule Take 1 capsule (1,000 mg total) by mouth. 0 Active lisinopriL (PRINIVIL,ZESTR IL) 5 mg tablet Take 1 tablet (5 mg total) by mouth 1 (one) time each day. Active montelukast (SINGULAIR) 10 mg tablet Take 1 tablet (10 mg total) by mouth 1 (one) time each day. Active progesterone (PROMETRIUM) 200 mg capsule Take 1 capsule (200 mg total) by mouth 1 (one) time each day. for 90 days Active MAGNESIUM GLYCINATE ORAL Take 400 mg by mouth. Active cetirizine (ZyrTEC) 10 mg tablet Take 1 tablet (10 mg total) by mouth 1 (one) time each day. Active mv-min/FA/vit K/lutein/zeaxan t (PRESERVISION AREDS 2 PLUS MV ORAL) Take by mouth. Activ e ergocalciferol, vitamin D2, (VITAMIN D2 ORAL) Take by mouth. Activ e docusate sodium (COLACE) 100 mg capsule Take 1 capsule (100 mg total) by mouth 1 (one) time each day. Active albuterol HFA (PROAIR HFA ; PROVENTIL HFA ; VENTOLIN HFA) 90 mcg/actuation inhaler Inhale 2 puffs by mouth every 6 hours as needed. Active acetaminophen (TYLENOL) 325 mg tablet Take by mouth every 6 hours as needed. 0 Active biotin 5 mg capsule 0 Refills, Maintenance, 11/14/22 10:47:00 EDT, Partial fill upon patient request if the prescription is for a schedule II opioid drug. 3 Active cholecalciferol (VITAMIN D-3) 25 mcg (1,000 unit) tablet Take by mouth. Ac tive estradioL (VIVELLE-DOT) 0.1 mg/24 hr APPLY 1 PATCH TWICE A WEEK BY TRANSDERMAL ROUTE FOR 84 DAYS. Active fexofenadine (LIBBY) 180 mg tablet Take 1 tablet (180 mg total) by mouth. Active ipratropium (ATROVENT) 21 mcg (0.03 %) nasal spray INSTILL 2 SPRAYS IN EACH NOSTRIL 3 TIMES DAILY 90 DAYS 4 Active metroNIDAZOLE (METROCREAM) 0.75 % cream APPLY TO AREAS ON FACE WITH ROSACEA TWICE DAILY NEEDED. Active coenzyme Q-10 30 mg capsule Take 1 capsule (30 mg total) by mouth. Active benzonatate (TESSALON) 100 mg capsule Take 2 capsules (200 mg total) by mouth 3 (three) times a day if needed. 5 Active Pulmicort Flexhaler 180 mcg/actuation inhaler Inhale 1-2 puffs by mouth 2 (two) times a day. 5 Active Symbicort 80-4.5 mcg/actuation inhaler Inhale 2 puffs by mouth 2 (two) times a day. 5 Active cyclobenzaprine (FLEXERIL) 10 mg tablet Take 1 tablet (10 mg total) by mouth 2 (two) times a day if needed. 5 Active Active Problems Problem Noted Date Diagnosed Date Disorder of pelvis 02/20/2025 Neoplasm of uncertain behavior of skin of face 0 02/20/2025 Thyroid nodule 02/20/2025 Malignant melanoma of skin ([facility] V24, [facility] V28) 01/05/2024 Migraine with aura 01/05/2024 Multinodular goiter 01/05/2024 Overview (02/20/2025): 16 cm complex right lobe nodule, 9 mm nodule right lower pole nodule, FNA 2012 - benign; stable u/s 2020 Tubular adenoma of colon 01/05/2024 Overview (02/20/2025): EMR done in October 2020. Needs a repeat colonoscopy in Apr 2021 EMR done in October 2020. Needs a repeat colonoscopy in Apr 2021 Urticaria 01/05/2024 Essential (primary) hypertension 02/10/2022 Hip pain 10/28/2011 Overview (02/20/2025): Hip pain Encounters Date Type Department Care Team Description 02/28/2025 Telephone Pulmonology [facility] [address] [facility] [address] [place] [address] Andrzej Barrios MD 02/20/2025 2:30 PM EDT Office Visit Pulmonology [facility] [address] [facility] [address] [place] [phone] Andrzej Barrios MD Moderate asthma, unspecified whether complicated, unspecified whether persistent (Primary Dx); Pulmonary nodule from Last 3 Months Surgical History Surgery Date Site/Laterality Comments TONSILLECTOMY HIP SURGERY Bilateral BREAST SURGERY Left LUMPECTOMY Medical History Medical History Date Comments Migraine Asthma Family History Medical History Relation Name Comments Colon cancer Paternal Grandmother Relation Name Status Comments Paternal Grandmother Social History Tobacco Use Types Packs/Day Years Used Date Smoking Tobacco: Never Smokeless Tobacco: Never Tobacco Cessation:Counseling Given: Not Answered Alcohol Use Standard Drinks/Week Comments Yes 2 (1 standard drink = 0.6 oz pur e alcohol) Interpersonal Safety Answer Date Record ed Physical Abuse Unrecognized value 06/28/2024 Verbal Abuse Unrecognized value 06/28/2024 Comments No Sex and Gender Information Value Date Recorded Sex Assigned at Not on file Legal Sex Female 9:01 PM EST Gender Identity Not on file Sexual Orientation Not on file Obstetrics History Last Filed Vital Signs Vital Sign Reading Time Taken Comments Blood Pressure 136/81 02/20/2025 2:45 PM EDT Pulse 72 02/20/2025 2:45 PM EDT Temperature 36.7 C (98.1 F) 06/28/2024 12:53 PM EST Respiratory Rate 20 02/20/2025 2:45 PM EDT Oxygen Saturation 100% 02/20/2025 2:45 PM EDT Inhaled Oxygen Concentration - - Weight 86.2 kg (190 lb) 02/20/2025 2:45 PM EDT Height 175.3 cm (5' 9 ) 02/20/2025 2:45 PM EDT Body Mass Index 28.06 02/20/2025 2:45 PM EDT Plan of Treatment Upcoming Encounters Date Type Department Care Team (Late st Contact Info) Description 08/21/2025 3:00 PM EDT Office Visit Pulmonology - [address] [place] [address] Andrzej Barrios MD [address] [place] [phone] Health Maintenance Due Date Last Done Comments Breast Cancer Screening 1970 DTaP,Tdap,and Td Vaccines (1 - Tdap) 1988 Hepatitis B Vaccines (1 of 3 - 19+ 3-dose series) 1988 Pneumococcal Vaccine: 50+ Years (1 of 2 - PCV) 1988 Cervical Cancer Screening: P ap Smear 1990 RSV Immunization Adult Patients (1 - Risk 50-74 years 1-dose series) 09/13/2019 Cholesterol Screening (Lipid Panel) 05/17/2022 HIV Screening 05/17/2022 Hepatitis C Screening 05/17/2022 Social Influencers of Health Screening 05/17/2022 Depression Screening 06/15/2024 Hypertension/CHF/CAD Annual BMP Blood Test 06/28/2024 COVID-19 Vaccine (4 - 2024-2 6 season) 2025 04/13/2021, 07/21/2020, 06/23/2020 Influenza Vaccine (#1) 2025 , 03/07/2023, 03/03/2020 Colorectal Cancer Screening: Colonoscopy 06/28/2034 06/28/2024, 08/07/2020 Zoster Vaccines Completed 07/20/2022, 01/29/2022 HIB Vaccines Aged Out No longer eligi ble based on patient's age to complete this topic HPV Vaccines Aged Out No longer eligi ble based on patient's age to complete this topic Hepatitis A Vaccines Aged Out No long er eligible based on patient's age to complete this topic IPV Vaccines Aged Out No longer eligi ble based on patient's age to complete this topic MMR Vaccines Aged Out No longer eligi ble based on patient's age to complete this topic Meningococcal ACWY Vaccine Aged Out N o longer eligible based on patient's age to complete this topic Meningococcal B Vaccine Aged Out No l onger eligible based on patient's age to complete this topic RSV Immunization Patients Under 20 months Aged Out No longer eligible b ased on patient's age to complete this topic Varicella Vaccines Aged Out No longer eligible based on patient's age to complete this topic Medical Devices Implanted Type Area Cooling Tower Operator Device Identifier Shelf Expiration Date Model / Serial / Lot Joints Hip Joints Hip Bilateral : Hip Procedures Procedure Name Priority Date/Time Associated Diagnosis Comments COLONOSCOPY Routine 06/28/2024 12:52 PM EST Hx of colonic polyps Family history of colonic polyps Family history of colon cancer from Last 3 Months or Most Recently Relevant to Health Maintenance Results * COLONOSCOPY Anesthesia - MAC; [facility] ENDOSCOPY (06/28/2024 12:52 PM EST) Anatomical Region Laterality Modality Endoscopy 06/28/2024 12:3 6 PM EST Impressions 06/28/2024 12:56 PM EST - The examined portion of the ileum was normal. - A tattoo was seen in the distal transverse colon. A post-polypectomy scar was found at the tattoo site. There was no evidence of residual polyp tissue. - The examination was otherwise normal on direct and retroflexion views. - No specimens collected. Recommendation: - Repeat colonoscopy in 5 years for surveillance. Narrative 06/28/2024 12:56 PM EST [facility] GI Patient Name: Emilie Richardson Procedure Date: 06/28/2024 12:36 PM Date of : 1970 Age: 53 Gender: Female Note Status: Finalized Attending MD: Elida Pelaez MD, Procedure Date No Time: 06/28/2024 Procedure: Colonoscopy Indications: High risk colon cancer surveillance: Personal history of adenoma (10 mm or greater in size), Patient has a history of large adenomatous polyp s/p piecemeal removal 2020 with 6 month follow up colonoscop 04/2021 without remnant poylp. She presents today for surveillance colonoscopy. Providers: Elida Pelaez MD Referring MD: Ameya Sepulveda MD Medicines: Propofol per Anesthesia Complications: No immediate complications. Estimated Blood Loss: Estimated blood loss: none. Procedure: Pre-Anesthesia Assessment: - ASA Grade Assessment: II - A patient with mild systemic disease. After I obtained informed consent, the scope was passed under direct vision. Throughout the procedure, the patient's blood pressure, pulse, and oxygen saturations were monitored continuously.The Colonoscope was introduced through the anus and advanced to the terminal ileum. The colonoscopy was performed without difficulty. The patient tolerated the procedure well. The quality of the bowel preparation was excellent. Findings: The perianal and digital rectal examinations were normal. The terminal ileum appeared normal. A tattoo was seen in the distal transverse colon. A post-polypectomy scar was found at the tattoo site. There was no evidence of residual polyp tissue. The exam was otherwise without abnormality on direct and retroflexion views. Procedure Code(s): --- Professional --- G0105, Colorectal cancer screening; colonoscopy on individual at high risk Diagnosis Code(s): --- Professional --- Z86.010, Personal history of colonic polyps CPT copyright 2020 [employer]. All rights reserved. The codes documented in this report are preliminary and upon furnace builder review may be revised to meet current compliance requirements. Elida Pelaez MD 06/28/2024 12:55:56 PM This report has been signed electronically.Elida Pelaez MD Number of Addenda: 0 Note Initiated On: 06/28/2024 12:36 PM Scope In: Scope Out: Endoscopy Department at [facility] - [address] [place] [id number] Procedure Note Elida Pelaez MD - 06/28/2024 [facility] GI Patient Name: Emilie Richardson Procedure Date: 06/28/2024 12:36 PM Date of : 1970 Age: 53 Gender: Female Note Status: Finalized Attending MD: Elida Pelaez MD, Procedure Date No Time: 06/28/2024 Procedure: Colonoscopy Indications: High risk colon cancer surveillance: Personalhistory of adenoma (10 mm or greater in size), Patient hasa history of large adenomatous polyp s/p piecemeal removal 2020 with 6 month follow up otvjcchzhp30/2021 without remnant poylp. She presents today for surveillance colonoscopy. Providers: Elida Pelaez MD Referring MD: Ameya Sepulveda MD Medicines: Propofol per Anesthesia Complications: No immediate complications. Estimated Blood Loss: Estimated blood loss: none. Procedure: Pre-Anesthesia Assessment: - ASA Grade Assessment: II - A patient with mild systemic disease. After I obtained informed consent, the scope was passed under direct vision. Throughout theprocedure, the patient's blood pressure, pulse, and oxygen saturations were monitored continuously.The Colonoscope was introduced through the anus and advanced to the terminal ileum. The colonoscopy was performed without difficulty. The patient tolerated the procedure well. The quality of the bowel preparation was excellent. Findings: The perianal and digital rectal examinations were normal. The terminal ileum appeared normal. A tattoo was seen in the distal transverse colon. A post-polypectomy scar was found at the tattoo site. There was no evidence of residual polyp tissue. The exam was otherwise without abnormality ondirect and retroflexion views. Procedure Code(s): --- Professional --- G0105, Colorectal cancer screening; colonoscopy on individual at high risk Diagnosis Code(s): --- Professional --- Z86.010, Personal history of colonic polyps CPT copyright 2020 [employer]. All rights reserved. The codes documented in this report are preliminary and upon furnace builder reviewmay be revised to meet current compliance requirements. Elida Pelaez MD 06/28/2024 12:55:56 PM This report has been signed electronically.Elida Pelaez MD Number of Addenda: 0 Note Initiated On: 06/28/2024 12:36 PM Scope In: Scope Out: Endoscopy Department at [facility] - [address] [place] [id number] IMPRESSION: - The examined portion of the ileum was normal. - A tattoo was seen in the distal transverse colon.A post-polypectomy scar was found at the tattoo site. There was no evidence of residual polyp tissue. - The examination was otherwise normal on directand retroflexion views. - No specimens collected. Recommendation: - Repeat colonoscopy in 5 years for surveillance. us Elida Pelaez MD GI~PROCEDURE ORDERABLES Final Result from Last 3 Months or Most Recently Relevant to Health Maintenance Insurance [place] [id number] [facility] Care Teams Senior Statistical Programmer Relationship Specialty Start Date End Date Ameya Sepulveda MD [address] [place] [address] PCP - General Internal Medicine 07/25/20
--- OUTSIDE RECORDS SUMMARY | 2025-04-12 11:53 | XMS_ITS | Patient Health Record ---
Author Organization [facility] Address [address] [facility] [place] [address] Care Team Providers Care Beader Name Role Phone Ameya Sepulveda MD Primary Care Provider Unavail able Black, Amelie Unavailable [phone] Allergies No Known Allergies Reason For Referral No Information Medications Medication SIG (Take, Route, Frequency, Duration) Notes Start Date End Date Status Singulair 10 MG 1 tablet Orally Once a day; Duration: 30 day(s) Active Wixela Inhub 100-50 MCG/DOSE 1 puff Inhalation Twice a day Active Wixela Inhub Active Singulair Active Vitamin D 2000 UNIT Orally Unknown CoQ-10 200 mg Once a day Activ e Nasonex 50 MCG/ACT 2 sprays in each nos tril Nasally PRN Unknown Kariva 0.15-0.02/0.01 MG (02/11) as directed Orally Active Align Active Magnesium Gluconate Active Night Splint AFO - L1930 as directed 01/09/2017 Unknown Social History Tobacco Use: Social History Observation Description Date Details (start date - stop date) Never Smoker NA - NA Tobacco Use/Smoking Question Answer Notes Are you a: nonsmoker Additional Findings: Tobacco Non-User Aggressive non-smoker Tobacco use other than smoking: Question Answer Notes Are you an other tobacco user? No Problems Problem Type SNOMED Code ICD Code Onset Dates Problem Status W/U Status Risk Notes Problem Localized, primary osteoarthritis of the ankle and/or foot (162468763) Primary osteoarthrit is, right ankle and foot (M19.071) Active confirmed Plan Of Treatment Pending Test Test Name Order Date , A5400-PVVIC/INJECT, JOINT/BURSA 1 07/14/2020 Insurance Providers Payer Name Payer Address Payer Phone Subscriber Number Group Number Insured Name Patient Relationship to Insured Coverage Start Date Coverage End Date [facility] [address] [place] [address] [id number] Emilie Erickson Self - patient is the insured Medical (General) History Medical History History ICD Code Raynauds syndrome Headaches Cancer, Melanoma Back pain Chicken pox Vasovagal Syncope asthma Joint implants/screws - B/L hip resurfac e Surgical History Surgery Date(Month/Year) hip surgery-Left resurfacing 10/2008 hip surgery-right resurfacing 10/2009 hip anthroscopy 07/2008 [facility] [employer] [facility] 1989 lumpectomy, left breast 2012
--- OUTSIDE RECORDS SUMMARY | 2025-04-12 11:53 | XMS_ITS | Encounter Summary ---
Author Organization [facility] Address [address] [place] [address] Phone Care Team Providers Care Aircrewman Name Role Phone Ameya Sepulveda MD Primary Care Provider [phone] Encounter Details Date Type Department Care Team (Late st Contact Info) Description 09/24/2021 Telephone [facility] [address] [place] [address] Lionel Mathis MD Social History Tobacco Use Types Packs/Day Years Used Date Smoking Tobacco: Never Assessed Comments Unknown Sex and Gender Information Value Date Recorded Sex Assigned at Not on file Legal Sex Female 9:57 AM EDT Gender Identity Not on file Sexual Orientation Not on file documented as of this encounter Miscellaneous Notes * Telephone Encounter - Carmel Espinoza - 09/24/2021 4:46 PM EDT Pt called, she cancelled her appt on 12/02/[address] Mathis because she can only come in on a Thursday and cannot wait until january. Please call her back at [phone] Thank you documented in this encounter Plan of Treatment Not on file documented as of this encounter Visit Diagnoses Not on filedocumented in this encounter Care Teams Aircrewman Relationship Specialty Start Date End Date Ameya Sepulveda MD [address] [place] [address] PCP - General Internal Medicine 09/05/21 documented as of this encounter
--- OUTSIDE RECORDS SUMMARY | 2025-04-12 11:53 | XMS_ITS | Clinical Summary ---
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 Active biotin 5 mg Cap 0 Refills, Maintenance, 11/14/22 10:47:00 EDT, Partial fill upon patient request if the prescription is for a schedule II opioid drug. 3 Active cholecalcifero l (VITAMIN D3) 25 MCG (1,000 unit) tablet Take by mouth. Ac tive docusate sodium (COLACE) 100 MG capsule Take 100 mg by mouth. 3 Active estradioL (VIVELLE-DOT) 0.1 mg/24 hr APPLY 1 PATCH TO SKIN TWICE WEEKLY 4 Active lisinopril (PRINIVIL,ZEST RIL) 5 MG tablet Take 5 mg by mouth daily. Active metroNIDAZOLE (METROCREAM) 0.75 % cream APPLY TO AREAS ON FACE WITH ROSACEA TWICE DAILY NEEDED. 4 Active montelukast (SINGULAIR) 10 mg tablet Take 10 mg by mouth daily. Active progesterone (PROMETRIUM) 200 mg capsule TAKE 1 CAPSULE (200 MG) BY MOUTH ONCE DAILY IN THE EVENING Active coenzyme Q10 30 mg capsule Take 30 mg by mouth. Active antiox #8/om3/dha/epa /lut/zeax (PRESERVISION AREDS 2, OMEGA-3, ORAL) Take by mouth. Active MAGNESIUM GLYCINATE ORAL Take 400 mg by mouth. Active SYMBICORT 80-4.5 mcg/actuation inhaler Inhale 2 puffs into the lungs 2 (two) times a day. 5 Active cetirizine (ZYRTEC) 10 MG tablet Active acetaminophen (TYLENOL) 325 mg tablet Take by mouth every 6 (six) hours as needed. 025 Discontin ued(No longer taking) estradioL (ESTRACE) 0.01 % (0.1 mg/gram) vaginal cream INSERT 1 GRAM VAGINALLY TWICE WEEKLY 4 025 Discontin ued(No longer taking) fexofenadine (LIBBY) 180 MG tablet Take 180 mg by mouth. 025 Discontin ued(No longer taking) Active Problems Problem Noted Date Diagnosed Date Malignant melanoma of skin 01/05/2024 Migraine with aura 01/05/2024 Tubular adenoma of colon 01/05/2024 Overview (01/05/2024): EMR done in October 2020. Needs a repeat colonoscopy in Apr 2021 EMR done in October 2020. Needs a repeat colonoscopy in Apr 2021 Urticaria 01/05/2024 Multinodular goiter 01/05/2024 Overview (04/03/2025): 16 cm complex right lobe nodule, 9 mm nodule right lower pole nodule, FNA 2012 - benign; stable u/s 2020; repeat FNA [address] Sepulveda d/t slight increase in nodule size Assessment & Plan (04/03/2025 5:06 PM EDT): Clinically & biochemically euthyroid. No compressive symptoms. Ultrasound noted stable dominant nodule on right & new nodule. I believe the dominant nodule has been sampled x 2 & the new nodule has been seen on previous u/s. Will obtain/review actual images to review & determine need for/timing of follow up imaging. Assessment & Plan (01/05/2024 1:21 PM EDT): Clinically & biochemically euthyroid. No compressive symptoms. Some hoarseness, but vocal cords looked ok on ENT evaluation so would not attribute to MNG. Will repeat ultrasound. To call when done so we can track down results. Essential (primary) hypertension 02/10/2022 Assessment & Plan (04/03/2025 5:03 PM EDT): Well controlled Hip pain 10/28/2011 Overview (08/05/2014): Hip pain Encounters Date Type Department Care Team Description 04/05/[address] [facility],Outside Imaging [address] [place] [address] Unknown, Grecia, 04/05/[address] [facility],Outside Imaging [address] [place] [address] Unknown, MD Grecia 04/05/2025 [address] Orders [facility],Outside Imaging [address] [place] [address] Unknown, Unknown, 04/05/[address] [facility],Outside Imaging [address] [place] [address] Unknown, MD [place]rec[place] 04/04/2025 [address]illary Orders [facility],Outside Imaging [address] [place] [address] Unknown, MD [place]rec[place] 04/04/2025 [address]illary Orders [facility],Outside Imaging [address] [place] [address] Unknown, MD [place]recia 04/03/2025 3:20 PM EDT Office Visit [facility] [address] [place] [phone] Tracy Stallworth MD Essential (primary) hypertension (Primary Dx); Multinodular goiter 04/03/2025 Telephone [facility] [address] [place] [phone] Tracy Stallworth MD 03/10/2025 Telephone [facility] Internal Medicine [address] [place] [address] Ameya Sepulveda MD Appointment 01/30/2025 Telephone [facility] [address] [place] [phone] Tracy Stallworth MD Same Day Can 01/25/2025 Orders Only [facility] Internal Medicine [address] [place] [address] Provider, MD Cornelia from Last 3 Months Family History Medical History Relation Comments Asthma Daughter Celiac disease Daughter Bipolar disorder Father Hypertension Father Parkinson's disease Father Thyroid disease Maternal Grandmother Hypertension Mother Thyroid disease Mother Transient ischemic attack Mother Asthma Son Relation Status Comments Daughter Father Alive Maternal Grandmother Mother Son Social History Tobacco Use Types Packs/Day Years Used Date Smoking Tobacco: Never Smokeless Tobacco: Never Tobacco Cessation:Counseling Given: Not Answered Alcohol Use Standard Drinks/Week Comments Yes 3 [...] Sign Reading Time Taken Comments Blood Pressure 110/66 04/03/2025 3:22 PM EDT Pulse 67 04/03/2025 3:22 PM EDT Temperature 36.5 C (97.7 F) 01/05/2024 9:32 AM EDT Respiratory Rate 17 01/05/2024 9:32 AM EDT Oxygen Saturation 97% 04/03/2025 3:22 PM EDT Inhaled Oxygen Concentration - - Weight 86.2 kg (190 lb) 04/03/2025 3:22 PM EDT Height 175.3 cm (5' 9.02 ) 04/03/2025 3:22 PM ED T Body Mass Index 28.05 04/03/2025 3:22 PM EDT Plan of Treatment Upcoming Encounters Date Type Department Care Team (Late st Contact Info) Description 04/09/2026 3:20 PM EDT Office Visit [facility] Endocrinology [address] [place] [facility] [place] [phone] Tracy Stallworth MD [address] [place] [phone] [email or web address] Maintenance Due Date Last Done Comments Adult Td,Tdap Booster 1969 CREATININE LEVEL 1969 LIPID PANEL 1969 DEPRESSION SCREENING 1981 HEPATITIS C SCREENING 09/13/1987 HIV ONE-TIME SCREENING (18-6 5 YEARS) 09/13/1987 PNEUMOCOCCAL VACCINES (50+ years) (1 of 2 - PCV) 1988 ZOSTER VACCINES (1 of 2) 1988 PAP SMEAR 1990 SCREENING FOR DIABETES 2004 MAMMOGRAM 2009 POTASSIUM LEVEL 10/25/2010 10/25/2009 COLOGUARD 2014 COLONOSCOPY 2014 COLORECTAL CANCER SCREENING 2014 FIT TEST 2014 FOBT 2014 SIGMOIDOSCOPY 2014 VIRTUAL COLONOSCOPY 2014 INFLUENZA VACCINE (#1) 2025 03/03/2020 COVID-19 VACCINE ( - 2024-2 6 season) 2025 04/13/2021, 07/21/2020, 06/23/2020 BLOOD PRESSURE 10/02/2025 04/03/2025 RSV VACCINE (1 - 1-dose 75+ series) 2044 SMOKING STATUS SCREENING (On ce After 26 Yrs) Completed 05/02/2024 HEPATITIS A VACCINES Aged Out No long er eligible based on patient's age to complete this topic HIB VACCINES Aged Out No longer eligi ble based on patient's age to complete this topic MENINGOCOCCAL VACCINES (ACWY) Aged Out No longer eligible based on patient's age to complete this topic MENINGOCOCCAL VACCINES (B) Aged Out N o longer eligible based on patient's age to complete this topic Medical Devices Not on file Procedures Procedure Name Priority Date/Time Associated Diagnosis Comments HISTORICAL LAB Routine 10/25/2009 8:10 AM EDT from Last 3 Months or Most Recently Relevant to Health Maintenance Results * Historical Lab (10/25/2009 8:10 AM EDT) SODIUM 139 136 - 145 MMOL/L [facility] POTASSIUM 4.5 3.5 - 5.2 MMOL/L [facility] CHLORIDE 104 99 - 109 MMOL/L [facility] CARBON DIOXIDE 30 20 - 31 MMOL/L [facility] ANION GAP 5.0 4.0 - 13.9 [facility] 10/25/2009 8:10 AM EDT 10/25/2009 8:38 AM EDT Narrative [facility] - 10/25/2009 8:10 AM EDT COMMENT: - us Sarita Horn PA-C LAB BLOOD ORDERABLES Final R esult [facility] [address] [place] [address] from Last 3 Months or Most Recently Relevant to Health Maintenance Insurance [facility] POS [place] [address] [place] [id number] POS EPO [facility] POS EPO [facility] [place] [address] [place] [address] [place] [address] [place] [address] POS EPO Care Teams Wind Turbine Installer Relationship Specialty Start Date End Date Coby Castro MD [address] [facility] [place] [address] PCP - General Internal Medicine 04/03/25 Additional Source Comments The information contained in this document represents components of the legal health record. It is not the complete legal health record.[facility]
== END 2025-04-12 10:41 | disposition home or self-care (01) ==
LOC: HO.HMCFM 09:52
PROVIDERS: PCP Nurse Practitioner Family; Visit Provider Nurse Practitioner Family
DX: Z76.89 Persons encountering health services in other specified circumstances (principal); M53.3 Sacrococcygeal disorders, not elsewhere classified; N95.1 Menopausal and female climacteric states; J45.20 Mild intermittent asthma, uncomplicated; E04.1 Nontoxic single thyroid nodule; Z85.820 Personal history of malignant melanoma of skin; R00.1 Bradycardia, unspecified

== ENCOUNTER → 2025-04-12 09:51 | Outpatient (BNVA) | payer OTHER, SELFPAY | PROVIDERS: Visit Provider Nurse Practitioner Family | DX: M53.3 Sacrococcygeal disorders, not elsewhere classified (principal); M54.50 Low back pain, unspecified; J45.909 Unspecified asthma, uncomplicated; N95.1 Menopausal and female climacteric states; J45.20 Mild intermittent asthma, uncomplicated; E04.1 Nontoxic single thyroid nodule; R00.1 Bradycardia, unspecified; Z76.89 Persons encountering health services in other specified circumstances; Z85.820 Personal history of malignant melanoma of skin | CPT/HCPCS: 96127; 96160 ==